=== PATIENT | female | born 1940 | race Caucasian/White ===

== ENCOUNTER 2019-06-03 09:08 | Emergency (ER) | payer MEDICARE, MEDICAID, SELFPAY ==
--- NOTE | ~2019-06-03 | CT_ITS ---
EXAMINATION: CT brain wo con DATE: 06/03/2019 09:44 INDICATION: Dizziness TECHNIQUE: Computed tomography (CT) of the head was performed without intravenous contrast. Sagittal and coronal reconstructions were performed. The mA was adjusted according to patient size. Iterative reconstruction technique was employed. The dose-length product was 605.33 mGy-cm. COMPARISON: None FINDINGS: No acute intracranial hemorrhage, acute infarction or abnormal extra axial fluid collection. Ventricl es are normal and symmetric. No mass/mass effect. Changes of bilateral intraocular lens replacement. The orbits, paranasal sinuses and mastoid air cells are normal. Intracranial calcified cerebral ather osclerosis is noted. IMPRESSION: 1. No acute intracranial process. Reviewed, dictated and finalized at location A. PACKER
--- NOTE | ~2019-06-03 | XR_ITS ---
EXAMINATION: XR chest 2V DATE: 06/03/2019 10:18 INDICATION: Shortness of breath TECHNIQUE: PA and lateral views of the chest were obtained. COMPARISON: Chest CT dated 12/10/2011 FINDINGS: Mild biapical pleural-parenchymal scarring. A few small bilateral calcified pulmonary nodules along w ith calcified bilateral hilar and mediastinal lymph nodes and a few splenic calcifications, all consi stent with old granulomatous disease. Mild opacities at the right lung base and favor atelectasis ove r pneumonia. No pulmonary edema, pleural effusion or pneumothorax. The cardiomediastinal silhouette i s normal. Multiple surgical clips at the base of the neck likely related to prior thyroidectomy. IMPRESSION: 1. Mild right basilar opacities and favor atelectasis over pneumonia. Reviewed, dictated and finalized at location A. OR DESIGNER
[2019-06-03 09:18] VITALS: BP 164/87; PULSE 96; RESP 20; TEMP 36.6; O2SAT 98
--- NOTE | 2019-06-03 09:19 | ECG_ITS ---
Measurements Intervals [place] Rate: 95 P: 48 DC: 145 QRS: 23 QRSD: 86 T: 46 QT: 331 QTc: 418 Interpretive Statements SINUS RHYTHM ATRIAL AND VENTRICULAR PREMATURE COMPLEXES BORDERLINE ECG Electronically Signed On 06-03-2019 12:40:53 AIR POLLUTION SPECIALIST by Micah King D.O.
[2019-06-03 09:35] LABS: Basophils Absolute Auto 0.1 K/mm3 (0.0-0.1); Basophils Percent Auto 0.6 % (0.2-1.2); Eosinophils Absolute Auto 0.1 K/mm3 (0-0.3); Eosinophils Percent Auto 1.1 % (0-4.4); Hematocrit 47.6 % (37.0-47.0); Hemoglobin 15.3 g/dL (12.0-15.0); Immature Granulocyte Absolute 0.03 K/mm3 (0.00-0.031); Immature Granulocyte Percent A 0.4 % (0-0.5); Lymphocytes Absolute Auto 1.81 K/mm3 (0.9-3.2); Lymphocytes Percent Auto 22.2 % (18.3-44.2); Mean Corpuscular HGB Conc 32.1 g/dl (32-36); Mean Corpuscular Hemoglobin 30.5 pg (26-34); Mean Platelet Volume 9.8 fl (7.4-10.4); Monocytes Absolute Auto 0.7 K/mm3 (0.1-0.6); Monocytes Percent Auto 9.1 % (2.6-8.5); Neutrophils Absolute Auto 5.4 K/mm3 (1.3-6.7); Neutrophils Percent Auto 66.6 % (45.5-73.1); Platelet Count Result 184 k/mm3 (150-375); Red Blood Count 5.01 M/mm3 (4.2-5.4); Red Cell Distribution Width 13.8 % (11.5-14.5); White Blood Count 8.2 K/mm3 (4.5-10.0)
--- NOTE | 2019-06-03 09:39 | ED.SOB ---
HPI - SOB/Dyspnea General Chief Complaint: Shortness of Breath/Dyspnea Stated Complaint: dizzy/sob Time Seen by Provider: 06/03/19 09:18 Source: patient and family Mode of arrival: ambulatory Limitations: no limitations History of Present Illness HPI Narrative: Patient is a 78-year-old female who presents with family per private vehicle for evaluation of dizziness that is been present since having CAT scan imaging performed by her specialist at [facility] on Tuesday patient had scan for elevated calcitonin levels with history of thyroid cancer patient notes that she was scanned from the head down into the pelvis is unsure as to the results at this time. Patient notes after the scan she developed dizziness with a sensation of the room spinning coupled with some palpitations and shortness of breath. Patient was pretreated for the contrast exam which she has been historically without issue. Patient notes that the symptoms have persisted since the exam. Nothing appears to make the symptoms better or worse. Patient is not taken anything for her symptoms. On arrival patient denying any pain Related Data Home Medications Medication Instructions Recorded Confirmed levothyroxine 125 mcg PO DAILY 06/03/19 vit C,Q-Me-vmdsk-lutein-zeaxan 1 tablet PO BID 06/03/19 [PreserVision AREDS-2] Allergies Allergy/AdvReac Type Severity Reaction Status Date / Time iohexol Allergy Intermediate Rash Verified 06/03/19 09:25 [From contrast - CT, X-RAY] Review of Systems Review of Systems: All systems reviewed & are unremarkable except as noted in HPI and below PMFSH Past Medical History Medical History Breast cancer Thyroid cancer, medullary carcinoma Surgical History Surgical History H/O mastectomy Family History Family History Mother Family history of malignant neoplasm Sibling Family history of Alzheimer's disease Grandparent Family history of thyroid disease Social History Social History Smoking status: Never smoker Second hand tobacco smoke exposure: No Alcohol intake: never Gender identity (if verbalized by the patient): Female Exam Narrative: Exam Narrative: GENERAL: Well-appearing, well-nourished, and in no acute distress. HEAD: Normocephalic, atraumatic. EYES: PERRLA and EOMI. ENT: Nares clear, no rhinorrhea or epistaxis. Mucous membranes moist. Oropharynx without tonsillar hypertrophy exudate or other lesions. Bilateral TMs pearly jackson nonbulging NECK: Supple. No adenopathy or masses. CHEST: Clear to auscultation. No respiratory distress. No wheezes rales or rhonchi HEART: Regular rate and rhythm. No murmur heard. Normal peripheral pulses. ABDOMEN: Soft, nontender, nondistended EXTREMITIES: Normal range of motion. No edema. SKIN: Warm, dry, no rash. NEURO: No focal deficits. Alert and oriented x3. Cranial nerves II through XII grossly intact. Normal speech PSYCH: Normal mood and affect. Course Course Emergency Course: Patient in the room in no distress aware of case findings treatment plan and diagnosis agreeing to follow-up as directed or to return if symptoms worsen or concerns Vital Signs Vital signs: Vital Signs Temperature 97.9 F 06/03/19 09:18 Pulse Rate 96 06/03/19 09:18 Respiratory Rate 20 06/03/19 09:18 Blood Pressure 164/87 H 06/03/19 09:18 Pulse Oximetry 98 06/03/19 09:18 Temperature 97.9 F 06/03/19 09:18 Pulse Rate 84 06/03/19 10:55 Respiratory Rate 20 06/03/19 10:39 Blood Pressure 159/77 H 06/03/19 10:55 Pulse Oximetry 98 06/03/19 10:39 MDM - SOB/Dyspnea MDM Narrative Medical decision making narrative: Patient's dizziness improved with medications, there are no focal neurological deficits on exam. Subarachno
[2019-06-03 09:49] LABS: Alanine Aminotransferase 21 U/L (4-35); Alkaline Phosphatase 99 U/L (38-126); Aspartate Amino Transferase 27 U/L (14-36); Bilirubin,Total 0.4 mg/dL (0.2-1.3); Blood Urea Nitrogen 15 mg/dL (7-17); Calcium 9.2 mg/dL (8.4-10.2); Carbon Dioxide 28 mmol/L (22-30); Chloride 102 mmol/L (98-107); Estimated Glomerular Filt Rate > 60; Glucose 160 mg/dL (65-105); Lipase 97 U/L (23-300); Potassium 4.3 mmol/L (3.4-5.0); Sodium 139 mmol/L (137-145)
[2019-06-03] MEDS: SODIUM CHLORIDE 0.9% IV 500 ML 999 ML IV CONT (09:53)
[2019-06-03 09:54] LABS: Prothrombin Time 12.5 Seconds (11.1-14.7)
[2019-06-03] MEDS: MECLIZINE HCL 25 MG TABLET PO (09:54)
[2019-06-03] MEDS: METOCLOPRAMIDE HCL INJ 10 MG/2 ML VIAL IV PUSH (09:58)
[2019-06-03 10:01] LABS: NT Pro B Type Natriuretic Pept 214 PG/ML (5-100); Troponin I < 0.012 ng/mL (0.000-0.034)
[2019-06-03 10:13] LABS: Lactic Acid Reflex 1.3 mmol/L (0.7-2.1)
[2019-06-03 10:39] VITALS: BP 131/78; PULSE 84; RESP 20; O2SAT 98
[2019-06-03 10:48] LABS: Thyroid Stimulating Hormone Reflex 0.659 uIU/mL (0.465-4.68)
[2019-06-03 10:55] VITALS: BP 151/84; BP 153/72; BP 159/77; PULSE 68; PULSE 70; PULSE 84
[2019-06-03 11:02] LABS: Add Urine Microscopic? NO; Appearance Urine Clear (Clear); Bilirubin Urine Negative (Negative); Blood Urine Negative (Negative); Color Urine Straw (Yellow); Glucose Urine UA Negative (Negative); Ketones Urine Negative (Negative); Leukocyte Esterase Ur Negative LEU/UL (Negative); Nitrate Urine Negative (Negative); Protein Urine Negative (Negative); Specific Grav Ur 1.006 (1.001-1.035); Urobilinogen Urine Negative mg/dL (<2.0)
--- NOTE | 2019-06-08 07:44 | PC.NURSE ---
LATE ENTRY This note is being entered to document information to the patient's record. The following information was omitted on [06/03/2019], by [FROY Garcia]. NS 500mL infused with a stop time of 1030.
== END 2019-06-03 12:01 | disposition home or self-care (01) ==
PROVIDERS: Emergency Medicine Emergency Medical Services; Emergency Provider Emergency Medicine; PCP Internal Medicine
DX: R42 Dizziness and giddiness (principal); Z85.3 Personal history of malignant neoplasm of breast; Z85.850 Personal history of malignant neoplasm of thyroid; Z90.10 Acquired absence of unspecified breast and nipple; I49.1 Atrial premature depolarization; I49.3 Ventricular premature depolarization
CPT/HCPCS: 36415; 70450; 71046; 80053; 81003; 83605; 83690; 83880; 84443; 84484; 85025; 85610; 85730; 93005; 96361; 96374; 96375; 99284; A9270; J2765; J3360; J7040

== ENCOUNTER 2020-01-03 08:04 | Outpatient (CLI) | payer MEDICARE, MEDICAID, SELFPAY ==
[2020-01-03 09:10] LABS: Hemoglobin A1C 5.5 % (<5.7)
[2020-01-03 09:13] LABS: Alanine Aminotransferase 31 U/L (4-35); Anion Gap 7 mmol/L (8-16); Aspartate Amino Transferase 38 U/L (14-36); Blood Urea Nitrogen 13 mg/dL (7-17); Calcium 9.4 mg/dL (8.4-10.2); Carbon Dioxide 27 mmol/L (22-30); Chloride 103 mmol/L (98-107); Cholesterol 211 mg/dL (0-200); Estimated Glomerular Filt Rate > 60; Glucose 96 mg/dL (65-105); HDL Direct 50 mg/dL; Potassium 4.2 mmol/L (3.4-5.0); Sodium 137 mmol/L (137-145); Triglycerides 111 mg/dL (<150)
[2020-01-03 09:24] LABS: LDL Cholesterol Direct 122 mg/dL
== END 2020-01-03 08:05 | disposition home or self-care (01) ==
LOC: ANHLAB 08:05
PROVIDERS: PCP Internal Medicine; Visit Provider Internal Medicine
DX: E78.00 Pure hypercholesterolemia, unspecified (principal); R73.9 Hyperglycemia, unspecified; E88.81 Metabolic syndrome and other insulin resistance
CPT/HCPCS: 36415; 80048; 80061; 83036; 84450; 84460

== ENCOUNTER 2020-06-20 06:41 | Outpatient (CLI) | payer MEDICARE, MEDICAID, SELFPAY ==
[2020-06-20 07:30] LABS: Basophils Absolute Auto 0.1 K/mm3 (0.0-0.1); Eosinophils Absolute Auto 0.1 K/mm3 (0-0.3); Eosinophils Percent Auto 2.8 % (0-4.4); Hemoglobin 14.8 g/dL (12.0-15.0); Immature Granulocyte Absolute 0.02 K/mm3 (0.00-0.031); Immature Granulocyte Percent A 0.4 % (0-0.5); Lymphocytes Absolute Auto 1.12 K/mm3 (0.9-3.2); Lymphocytes Percent Auto 22.7 % (18.3-44.2); Mean Corpuscular HGB Conc 32.2 g/dl (32-36); Mean Corpuscular Hemoglobin 30.1 pg (26-34); Mean Corpuscular Volume 93.5 fl (80-100); Mean Platelet Volume 9.5 fl (7.4-10.4); Monocytes Absolute Auto 0.4 K/mm3 (0.1-0.6); Monocytes Percent Auto 8.7 % (2.6-8.5); Neutrophils Absolute Auto 3.2 K/mm3 (1.3-6.7); Neutrophils Percent Auto 64.4 % (45.5-73.1); Platelet Count Result 134 k/mm3 (150-375); Red Blood Count 4.92 M/mm3 (4.2-5.4); Red Cell Distribution Width 13.6 % (11.5-14.5); White Blood Count 4.9 K/mm3 (4.5-10.0)
[2020-06-20 07:40] LABS: Alanine Aminotransferase 26 U/L (4-35); Albumin Level 4.1 g/dL (3.5-5.1); Alkaline Phosphatase 104 U/L (38-126); Anion Gap 4 mmol/L (8-16); Aspartate Amino Transferase 36 U/L (14-36); Bilirubin,Total 0.6 mg/dL (0.2-1.3); Blood Urea Nitrogen 14 mg/dL (7-17); Calcium 9.2 mg/dL (8.4-10.2); Carbon Dioxide 30 mmol/L (22-30); Chloride 107 mmol/L (98-107); Cholesterol 217 mg/dL (0-200); Estimated Glomerular Filt Rate > 60; Glucose 114 mg/dL (65-105); HDL Direct 55 mg/dL; Potassium 4.2 mmol/L (3.4-5.0); Sodium 141 mmol/L (137-145); Triglycerides 137 mg/dL (<150)
[2020-06-20 07:52] LABS: LDL Cholesterol Direct 117 mg/dL
[2020-06-20 08:15] LABS: Vitamin D 25 Hydroxy 41.7 ng/mL
== END 2020-06-20 06:42 | disposition home or self-care (01) ==
PROVIDERS: PCP Nurse Practitioner; Visit Provider Nurse Practitioner
DX: I10 Essential (primary) hypertension (principal); E55.9 Vitamin D deficiency, unspecified; E78.2 Mixed hyperlipidemia; E03.9 Hypothyroidism, unspecified
CPT/HCPCS: 36415; 80053; 80061; 82306; 84443; 85025; 85055

== ENCOUNTER 2020-08-03 20:57 | Emergency (ER) | payer MEDICARE, MEDICAID, SELFPAY ==
--- NOTE | ~2020-08-03 | XR_ITS ---
EXAMINATION: XR chest 2V DATE: 08/03/2020 21:48 INDICATION: Hypertension and weakness TECHNIQUE: PA and lateral views of the chest are obtained. COMPARISON: 06/03/2019 FINDINGS: The lungs are free of acute opacities. There is scarring at the lung apices. Changes of lef t mastectomy are noted. There are surgical clips in the neck and upper mediastinum. There is no pleur al effusion or pneumothorax. The cardiomediastinal silhouette is normal. There is mild thoracic spond ylosis. IMPRESSION: 1. No acute cardiopulmonary abnormality. Reviewed, dictated and finalized at location A.
[2020-08-03 21:15] VITALS: BP 191/73; PULSE 81; RESP 18; TEMP 36.4; O2SAT 99
--- NOTE | 2020-08-03 21:20 | ECG_ITS ---
Measurements Intervals [place] Rate: 81 P: 3 ID: 139 QRS: 30 QRSD: 95 T: 47 QT: 366 QTc: 426 Interpretive Statements SINUS RHYTHM WITH SINUS ARRHYTHMIA BASELINE ARTIFACT- I, III, AVL, V2 NORMAL ECG Electronically Signed On 08-03-2020 22:04:10 CDT by Micah King D.O.
[2020-08-03 21:38] LABS: Basophils Percent Auto 0.7 % (0.2-1.2); Eosinophils Absolute Auto 0.1 K/mm3 (0-0.3); Eosinophils Percent Auto 2.1 % (0-4.4); Hematocrit 44.5 % (37.0-47.0); Hemoglobin 14.5 g/dL (12.0-15.0); Immature Granulocyte Absolute 0.02 K/mm3 (0.00-0.031); Immature Granulocyte Percent A 0.3 % (0-0.5); Immature Platelet Fraction Pct 2.1 % (0.9-11.2); Lymphocytes Absolute Auto 1.21 K/mm3 (0.9-3.2); Lymphocytes Percent Auto 19.8 % (18.3-44.2); Mean Corpuscular HGB Conc 32.6 g/dl (32-36); Mean Corpuscular Hemoglobin 30.5 pg (26-34); Mean Corpuscular Volume 93.7 fl (80-100); Mean Platelet Volume 9.7 fl (7.4-10.4); Monocytes Absolute Auto 0.5 K/mm3 (0.1-0.6); Monocytes Percent Auto 8.2 % (2.6-8.5); Neutrophils Absolute Auto 4.2 K/mm3 (1.3-6.7); Neutrophils Percent Auto 68.9 % (45.5-73.1); Platelet Count Result 145 k/mm3 (150-375); Red Blood Count 4.75 M/mm3 (4.2-5.4); Red Cell Distribution Width 13.7 % (11.5-14.5); White Blood Count 6.1 K/mm3 (4.5-10.0)
[2020-08-03 21:45] LABS: Alanine Aminotransferase 22 U/L (4-35); Albumin Level 4.1 g/dL (3.5-5.1); Alkaline Phosphatase 103 U/L (38-126); Anion Gap 8 mmol/L (8-16); Aspartate Amino Transferase 35 U/L (14-36); Bilirubin,Total 0.5 mg/dL (0.2-1.3); Blood Urea Nitrogen 17 mg/dL (7-17); Calcium 9.6 mg/dL (8.4-10.2); Carbon Dioxide 27 mmol/L (22-30); Chloride 105 mmol/L (98-107); Estimated CRCL calculation 43 ml/min; Estimated Glomerular Filt Rate > 60; Glucose 219 mg/dL (65-105); Potassium 3.6 mmol/L (3.4-5.0); Sodium 140 mmol/L (137-145)
[2020-08-03 22:16] LABS: Add Urine Microscopic? NO; Appearance Urine Clear (Clear); Bilirubin Urine Negative (Negative); Blood Urine Negative (Negative); Color Urine Straw (Yellow); Glucose Urine UA Negative (Negative); Ketones Urine Negative (Negative); Leukocyte Esterase Ur Negative LEU/UL (Negative); Nitrate Urine Negative (Negative); Protein Urine Negative (Negative); Specific Grav Ur 1.005 (1.001-1.035); Urobilinogen Urine Negative mg/dL (<2.0)
[2020-08-03 22:23] VITALS: BP 151/77; PULSE 74; RESP 15; O2SAT 99
--- NOTE | 2020-08-03 22:45 | ED.DIZZY ---
HPI - Dizziness General Chief Complaint: Dizziness Stated Complaint: dizziness, bp high Time Seen by Provider: 08/03/20 22:32 History of Present Illness HPI Narrative: 79 yo female presents to the ED for dizziness. About 2 hours ago while standing for a prolonged period at [employer] she became light headed. This was associated with mild nausea. She did get some relief from sitting, but symptoms did not resolve entirely. When she got home she checked her BP and it was significantly elevated, which is unusual. She does report that she had been a bit more active today than is normal for her and had not been drinking enough water. No CP, SOB, weakness, syncope. Related Data Home Medications Medication Instructions Recorded Confirmed levothyroxine 125 mcg PO DAILY 06/03/19 06/17/20 multivitamin 1 tablet PO DAILY 06/17/20 06/17/20 vit cap PO 06/17/20 06/17/20 C,E,zinc,Dw-kdrhe-4-lutein-zeaxanthin 250 mg-2.5 mg-0.5 mg capsule Allergies Allergy/AdvReac Type Severity Reaction Status Date / Time iohexol Allergy Intermediate Rash Verified 02/14/20 11:42 [From contrast - CT, X-RAY] Review of Systems Review of Systems: All systems reviewed & are unremarkable except as noted in HPI and below Constitutional: Constitutional: Denies chills, Denies fatigue, Denies fever(s) and Denies weakness ENT: Reports system reviewed and no additional complaints, except as documented Cardiovascular: Cardiovascular: Reports as per HPI Respiratory: Respiratory: Reports as per HPI Gastrointestinal: Gastrointestinal: Reports no additional gastrointestinal complaints Genitourinary: Genitourinary: Denies hematuria and Denies dysuria Neurologic: Reports as per HPI [facility] Past Medical History Medical History (Updated 08/03/20 @ 23:36 by Lc Calvillo MD) Essential (primary) hypertension Hiatal hernia with gastroesophageal reflux disease without esophagitis History of breast cancer Hypothyroidism, unspecified Mixed hyperlipidemia Thyroid cancer, medullary carcinoma Vitamin D deficiency, unspecified Surgical History Surgical History (Updated 06/17/20 @ 09:49 by Chaya Pandey CMA) H/O mastectomy H/O: hysterectomy 11/2019 with bladder muscle repair S/P removal of thyroid nodule 11/2011 and01/2012 Family History Family History Mother Family history of malignant neoplasm Sibling Family history of Alzheimer's disease Grandparent Family history of thyroid disease Social History Social History (Updated 06/17/20 @ 09:50 by Chaya Pandey [facility]) Smoking status: Never smoker Second hand tobacco smoke exposure: No Alcohol intake: never Substance use: never Additional living arrangements comments: lives with Gender identity (if verbalized by the patient): Female Exam Const: General: healthy appearing, no acute distress and alert Orientation/consciousness: patient oriented x3 HENMT: Head: normal to inspection Neck: Neck: normal visual inspection Resp: Effort & Inspection: normal respiratory effort Auscultation: clear to auscultation bilaterally, no rales, no rhonchi and no wheezes Cardio: Jugular venous distension: no JVD Rate: regular rate Rhythm: regular rhythm GI: Inspection: non-distended GI Palp: Yes Soft to palpation and No Tenderness to palpation present (GI) Skin: General skin exam: normal color Neuro: General: patient oriented x3, moves all extremities, no focal motor deficits and CN's II-XI intact bilaterally Cranial nerves: Yes Nystagmus not present Speech: normal speech Gait exam (Neuro): Normal gait present Extrem: General: normal to inspection and no edema Psych: Appearance: well kempt Affect: normal affect Course Vital Signs Vital signs: Vital Signs Temperature 36.4 C L 08/03/20 21:15 Pulse Rate 81 08/03/20 21:15 Respiratory Rate 18 08/03/20 21:15 Blood Pressure 191/73 H 08/03/20 21:15 P
[2020-08-03 23:30] VITALS: BP 144/71; PULSE 68; RESP 19; O2SAT 99
== END 2020-08-03 23:55 | disposition home or self-care (01) ==
PROVIDERS: Emergency Provider Emergency Medicine; PCP Nurse Practitioner
DX: R55 Syncope and collapse (principal); I10 Essential (primary) hypertension; Z85.3 Personal history of malignant neoplasm of breast; E03.9 Hypothyroidism, unspecified; E78.2 Mixed hyperlipidemia; E55.9 Vitamin D deficiency, unspecified; Z85.850 Personal history of malignant neoplasm of thyroid; Z90.10 Acquired absence of unspecified breast and nipple
CPT/HCPCS: 36415; 71046; 80053; 81003; 85025; 85055; 93005; 99283

== ENCOUNTER 2020-08-07 13:20 | Outpatient (CLI) | payer MEDICARE, MEDICAID, SELFPAY ==
[2020-08-07 14:38] LABS: Add Urine Microscopic? YES; Appearance Urine Cloudy (Clear); Bacteria Urine Trace /hpf; Bilirubin Urine Negative (Negative); Blood Urine 2+ (Negative); Color Urine Yellow (Yellow); Glucose Urine UA Negative (Negative); Ketones Urine Negative (Negative); Leukocyte Esterase Ur 2+ LEU/UL (Negative); Nitrate Urine Negative (Negative); Protein Urine 1+ mg/dL (Negative); RBC Urine 21-50 /hpf (0-2); Specific Grav Ur 1.013 (1.001-1.035); Squamous Epithelial Cell Urine Rare /hpf (Few); Urobilinogen Urine Negative mg/dL (<2.0); WBC Urine >75 /hpf
== END 2020-08-07 13:21 | disposition home or self-care (01) ==
LOC: ANHLAB 13:25
PROVIDERS: PCP Nurse Practitioner; Visit Provider Nurse Practitioner Family
DX: N39.0 Urinary tract infection, site not specified (principal)
CPT/HCPCS: 81001; 87086; 87088

== ENCOUNTER 2021-01-20 10:18 | Outpatient (CLI) | payer MEDICARE, MEDICAID, SELFPAY ==
[2021-01-20 11:21] LABS: Alanine Aminotransferase 25 U/L (4-35); Albumin Level 4.4 g/dL (3.5-5.1); Alkaline Phosphatase 100 U/L (38-126); Anion Gap 7 mmol/L (8-16); Aspartate Amino Transferase 35 U/L (14-36); Bilirubin,Total 0.3 mg/dL (0.2-1.3); Blood Urea Nitrogen 19 mg/dL (7-17); Calcium 9.6 mg/dL (8.4-10.2); Carbon Dioxide 27 mmol/L (22-30); Chloride 106 mmol/L (98-107); Estimated Glomerular Filt Rate > 60; Glucose 116 mg/dL (65-110); Potassium 4.2 mmol/L (3.4-5.0); Sodium 140 mmol/L (137-145)
[2021-01-20 18:53] LABS: Hemoglobin A1C 5.7 % (<5.7)
== END 2021-01-20 10:19 | disposition home or self-care (01) ==
LOC: ANHLAB 10:20
PROVIDERS: PCP Family Medicine; Visit Provider Family Medicine
DX: R73.9 Hyperglycemia, unspecified (principal); E03.9 Hypothyroidism, unspecified; I10 Essential (primary) hypertension
CPT/HCPCS: 36415; 80053; 83036; 84443

== ENCOUNTER 2021-02-21 11:45 | Emergency (ER) | payer MEDICARE, MEDICAID, SELFPAY ==
[2021-02-21 11:55] VITALS: BP 174/78; PULSE 88; RESP 16; TEMP 36.8; O2SAT 99
--- NOTE | 2021-02-21 12:54 | ED.FEMALEGU ---
HPI - Female Genitourinary General Chief complaint: Urogenital-Female Stated complaint: UTI Time Seen by Provider: 02/21/21 12:54 Source: patient Mode of arrival: ambulatory Limitations: no limitations History of Present Illness HPI Narrative: Renetta Mathis is an 80-year-old female with a PMH of high blood pressure and hypothyroid, HLD, breast cancer who comes to [facility] with complaints of urinary frequency and suprapubic pain has been going on for about 3 days and is getting worse. She also has some respiratory symptoms and is concerned about exposure to Covid Patient has had Covid vaccine Related Data Home Medications Medication Instructions Recorded Confirmed levothyroxine 125 mcg PO DAILY 06/03/19 02/21/21 multivitamin 1 tablet PO DAILY 06/17/20 02/21/21 vit cap PO 06/17/20 01/20/21 C,E,zinc,Fw-yephi-6-lutein-zeaxanthin 250 mg-2.5 mg-0.5 mg capsule Allergies Allergy/AdvReac Type Severity Reaction Status Date / Time iohexol Allergy Intermediate Rash Verified 02/21/21 12:47 [From contrast - CT, X-RAY] Review of Systems Review of Systems: CONSTITUTIONAL: Denies fever, chills, sweats. EYES: Denies visual changes, redness, discharge. ENT: Denies rhinorrhea, congestion, sore throat, otalgia. CARDIOVASCULAR: Denies chest pain, palpitations, edema. RESPIRATORY: Denies dyspnea, wheezing, cough GASTROINTESTINAL: Denies abdominal pain, nausea, vomiting, diarrhea. GENITOURINARY has dysuria, hematuria, abnormal discharge SKIN: Denies rash or itching. NEUROLOGIC: Denies numbness, or focal weakness. PSYCHIATRIC: Denies anxiety or depression. [facility] Past Medical History Medical History Essential (primary) hypertension Hiatal hernia with gastroesophageal reflux disease without esophagitis History of breast cancer Hypothyroidism, unspecified Mixed hyperlipidemia Thyroid cancer, medullary carcinoma Vitamin D deficiency, unspecified Surgical History Surgical History H/O: hysterectomy 11/2019 with bladder muscle repair History of total mastectomy of left breast 05/2012 Status post thyroidectomy 11/2011 - secondary to medullary thyroid cancer Family History Family History Mother Family history of malignant neoplasm Sibling Family history of Alzheimer's disease Grandparent Family history of thyroid disease Social History Social History Second hand tobacco smoke exposure: No Alcohol intake: never Substance use: never Additional living arrangements comments: lives with Gender identity (if verbalized by the patient): Female Comments At time of signature, I agree with nursing past medical, surgical, social and family history. There is no relevant family history pertinent to the presenting complaint. Exam Narrative: GENERAL: This is a well-nourished, well-developed patient, fragile appearing, in mild distress. HEAD: normocephalic, atraumatic. EYES: Sclera clear/white. Vision is grossly intact. EARS: External ears normal, . Hearing grossly intact. NOSE: External nose normal without nasal discharge, nares without redness, no rhinorrhea. THROAT: Mucous membranes moist, NECK: Neck supple, non-tender CARDIOVASCULAR: Regular rate and rhythm without murmurs, gallops, or rubs. RESPIRATORY: Clear to auscultation. Breath sounds equal bilaterally. No wheezes, rales, or rhonchi. GASTROINTESTINAL: Abdomen soft, mild suprapubic tender, SKIN: warm, intact with no suspicious lesions or rash, good texture and turgor. NEURO: awake, alert, and oriented to person, place and time. There were no obvious focal neurologic abnormalities. Steady gait EXTREMITIES: Normal range of motion. BACK: Nontender without deformity Course Course Emergency Course: Patient comes to [facility]
== END 2021-02-21 13:15 | disposition home or self-care (01) ==
PROVIDERS: Emergency Provider Nurse Practitioner
DX: N30.01 Acute cystitis with hematuria (principal); Z20.822 Contact with and (suspected) exposure to COVID-19; I10 Essential (primary) hypertension; K21.9 Gastro-esophageal reflux disease without esophagitis; E55.9 Vitamin D deficiency, unspecified; Z85.850 Personal history of malignant neoplasm of thyroid; Z85.3 Personal history of malignant neoplasm of breast; E89.0 Postprocedural hypothyroidism; Z90.12 Acquired absence of left breast and nipple
CPT/HCPCS: 81003; 87077; 87086; 87186; 87426; 99213; C9803; G0463

== ENCOUNTER 2021-06-10 13:09 | Outpatient (CLI) | payer MEDICARE, MEDICAID, SELFPAY ==
--- NOTE | ~2021-06-10 | US_ITS ---
EXAMINATION: US carotid duplex BI DATE: 06/10/2021 13:37 INDICATION: Dizziness and giddiness TECHNIQUE: Grayscale, color Doppler, and pulsed Doppler images of the cervical carotid arteries were obtained. The degree of vessel stenosis is placed in one of the following categories: normal, <50%, 5 0-69%, >=70% but less than near-occlusion, near-occlusion, or total occlusion. Note that percent sten osis relative to normal distal artery lumen diameter is indirectly measured from velocity measurement s as described by Lc, et al. Radiology 2003; 229:340-346. Notes: Normal: Peak systolic velocity <125 centimeters/sec and no plaque <50%. Peak systolic velocity <125 ( EDV <40; ICA/CCA PSV ratio <2.0; used these factors only a tandem lesions or low cardiac output or co ntralateral disease) 50-69 %: PSV 125-230 (EDV 40-100; ratio 2-4) >= 70% but less than near occlusion: PSV greater than 230 (EDV > 100; ratio> 4.0) Near Occlusion: PSV that is variable; markedly narrowed lumen Occlusion: Absent flow on color/spectral Doppler and no lumen on jackson scale. COMPARISON: None. FINDINGS: RIGHT: The right common carotid artery (CCA) peak systolic velocity (PSV) is 99 cm/s. The right internal car otid artery (ICA) PSV is 117 cm/s. The right ICA end-diastolic velocity (EDV) is 28 cm/s. The right I CA/CCA PSV ratio is 1.2. The external carotid artery (ECA) PSV is 125 cm/s. There is antegrade flow i n the right vertebral artery. LEFT: The left CCA PSV is 112 cm/s. The left ICA PSV is 91 cm/s. The left ICA EDV is 24 cm/s. The left ICA/ CCA PSV ratio is 0.8. The ECA PSV is 112 cm/s. There is antegrade flow in the left vertebral artery. IMPRESSION: 1. Less than 50% stenosis in the right internal carotid artery by sonographic criteria. 2. Less than 50% stenosis in the left internal carotid artery by sonographic criteria. Reviewed, dictated and finalized at location B. MATCHER IMPRESSION: 1. Less than 50% stenosis in the right internal carotid artery by sonographic fernanda blas. 2. Less than 50% stenosis in the left internal carotid artery by sonographic brooke french.
== END 2021-06-10 13:10 | disposition home or self-care (01) ==
LOC: ANHIMG 13:12
PROVIDERS: PCP Family Medicine; Visit Provider Nurse Practitioner
DX: R42 Dizziness and giddiness (principal); I65.23 Occlusion and stenosis of bilateral carotid arteries
CPT/HCPCS: 93880

== ENCOUNTER 2021-06-12 13:40 | Outpatient (CLI) | payer MEDICARE, MEDICAID, SELFPAY ==
--- NOTE | 2021-06-12 13:54 | ECHO_ITS ---
Patient Info Name: Renetta Mathis Age: 80 years : 1940 Gender: Female Ht: 64 in Wt: 125 lbs BSA: 1.60 m2 HR: 80 bpm BP: 157 / 88 mmHg Technical Quality: Good Exam Date: 06/12/2021 2:18 PM Exam Location: [facility] Patient Status: Outpatient Admit Date: 06/12/2021 Staff Ordering Physician: Ashlie De Los Santos NP Texturing Machine Fixer: Bryson Best RDCS, RT Attending Provider: Ashlie De Los Santos NP Referring Physician: Filiberto FRASER; Exam Type: CA echo doppler color flow Study Info Indications R42 - Dizziness and giddiness Complete two-dimensional, color flow and Doppler transthoracic echocardiogram is performed. Strain analysis performed. Summary 1. Complete two-dimensional, color flow and Doppler transthoracic echocardiogram is performed. 2. Left ventricular chamber dimension is normal. 3. Left ventricular systolic function is normal, estimated at 60-65%. 4. The left ventricular diastolic function is normal. 5. E/e' 6 is not elevated. 6. Global longitudinal strain is normal at -20.7%. 7. There is trace tricuspid valve regurgitation. Left Ventricle E/e' 6 is not elevated. Global longitudinal strain is normal at -20.7%. Left ventricular chamber dimension is normal. Left ventricular systolic function is normal, estimated at 60-65%. The left ventricular diastolic function is normal. Right Ventricle Right ventricular systolic function is normal and with normal TAPSE 2.1 cm. Right ventricular chamber dimension is normal. Left Atria Left atrial chamber dimension is normal. Right Atria Right atrial chamber dimension is normal. Aortic Valve The aortic valve is trileaflet. There is no aortic valve stenosis. There is no aortic valve regurgitation. Pulmonic Valve There is no pulmonic regurgitation. Mitral Valve There is no mitral valve stenosis. There is no mitral valve regurgitation. Tricuspid Valve There is trace tricuspid valve regurgitation. RVSP is not calculated due to an inadequate TR jet. Pericardium/Pleural There is no pericardial effusion. Inferior Vena Cava Normal inferior vena cava with >50% collapse upon inspiration consistent with normal right atrial pressure, 5 mmHg. Aorta The aortic root size at the sinus of Valsalva is normal. Left Ventricular Outflow Tract Name Value Normal LVOT 2D LVOT Diameter 1.9 cm LVOT Doppler LVOT Peak Gradient 3 mmHg LVOT Mean Gradient 2 mmHg LVOT VTI 21 cm LVOT VTI/AV VTI Ratio 1.0 LVOT Stroke Volume 57 ml LVOT CO 4.6 l/min LVOT CI 2.9 l/min/m2 Mitral Valve Name Value Normal MV Doppler MV Peak Gradient 1 mmHg MV Mean Gradient
== END 2021-06-12 13:41 | disposition home or self-care (01) ==
LOC: ANHCARD 13:42
PROVIDERS: PCP Family Medicine; Visit Provider Nurse Practitioner
DX: R42 Dizziness and giddiness (principal); I10 Essential (primary) hypertension
CPT/HCPCS: 93306

== ENCOUNTER 2021-06-29 08:10 | Outpatient (CLI) | payer MEDICARE, MEDICAID, SELFPAY ==
[2021-06-29 09:39] LABS: Basophils Percent Auto 0.5 % (0.2-1.2); Eosinophils Absolute Auto 0.1 K/mm3 (0-0.3); Eosinophils Percent Auto 1.8 % (0-4.4); Hematocrit 44.5 % (37.0-47.0); Immature Granulocyte Absolute 0.01 K/mm3 (0.00-0.031); Immature Granulocyte Percent A 0.2 % (0-0.5); Immature Platelet Fraction Pct 3.9 % (0.9-11.2); Lymphocytes Absolute Auto 1.12 K/mm3 (0.9-3.2); Lymphocytes Percent Auto 20.3 % (18.3-44.2); Mean Corpuscular HGB Conc 31.5 g/dl (32-36); Mean Corpuscular Hemoglobin 30.6 pg (26-34); Mean Corpuscular Volume 97.2 fl (80-100); Mean Platelet Volume 10.1 fl (7.4-10.4); Monocytes Absolute Auto 0.5 K/mm3 (0.1-0.6); Monocytes Percent Auto 9.8 % (2.6-8.5); Neutrophils Absolute Auto 3.7 K/mm3 (1.3-6.7); Neutrophils Percent Auto 67.4 % (45.5-73.1); Platelet Count Result 145 k/mm3 (150-375); Red Blood Count 4.58 M/mm3 (4.2-5.4); Red Cell Distribution Width 13.2 % (11.5-14.5); White Blood Count 5.5 K/mm3 (4.5-10.0)
[2021-06-29 09:50] LABS: Alanine Aminotransferase 24 U/L (4-35); Albumin Level 3.9 g/dL (3.5-5.1); Alkaline Phosphatase 111 U/L (38-126); Anion Gap 4 mmol/L (8-16); Aspartate Amino Transferase 35 U/L (14-36); Bilirubin,Total 0.4 mg/dL (0.2-1.3); Blood Urea Nitrogen 16 mg/dL (7-17); Calcium 8.8 mg/dL (8.4-10.2); Carbon Dioxide 29 mmol/L (22-30); Chloride 107 mmol/L (98-107); Cholesterol 212 mg/dL (0-200); Estimated Glomerular Filt Rate > 60; Glucose 105 mg/dL (65-110); HDL Direct 50 mg/dL; Potassium 4.2 mmol/L (3.4-5.0); Sodium 140 mmol/L (137-145); Triglycerides 170 mg/dL (<150)
[2021-06-29 09:54] LABS: Hemoglobin A1C 5.5 % (<5.7)
[2021-06-29 10:01] LABS: LDL Cholesterol Direct 112 mg/dL
[2021-06-29 10:14] LABS: Vitamin D 25 Hydroxy 56.7 ng/mL
[2021-06-29 10:28] LABS: Thyroid Stimulating Hormone Reflex 0.021 uIU/mL (0.465-4.68)
[2021-06-29 11:14] LABS: Free T4 Free Thyroxine Reflex 1.89 ng/dL (0.78-2.19)
[2021-06-29 13:05] LABS: Total Triiodothyronine (T3) 1.92 NG/ML (0.97-1.69)
== END 2021-06-29 08:11 | disposition home or self-care (01) ==
LOC: ANHLAB 08:15
PROVIDERS: PCP Family Medicine; Visit Provider Family Medicine
DX: E03.9 Hypothyroidism, unspecified (principal); E78.5 Hyperlipidemia, unspecified; R73.9 Hyperglycemia, unspecified; E55.9 Vitamin D deficiency, unspecified; Z85.850 Personal history of malignant neoplasm of thyroid; I10 Essential (primary) hypertension; Z00.00 Encounter for general adult medical examination without abnormal findings
CPT/HCPCS: 36415; 80053; 80061; 82306; 83036; 84439; 84443; 84480; 85025; 85055

== ENCOUNTER 2021-07-09 14:17 | Emergency (ER) | payer MEDICARE, MEDICAID, SELFPAY ==
[2021-07-09 14:30] VITALS: BP 167/85; PULSE 105; RESP 20; TEMP 36.6; O2SAT 99
[2021-07-09 14:38] VITALS: BP 167/85; PULSE 105; RESP 20; TEMP 36.6; O2SAT 99
--- NOTE | 2021-07-09 14:44 | ED.FEMALEGU ---
HPI - Female Genitourinary General Chief complaint: Urogenital-Female Stated complaint: UTI Time Seen by Provider: 07/09/21 14:35 Source: patient and RN notes reviewed Mode of arrival: ambulatory Limitations: no limitations History of Present Illness HPI Narrative: Patient presents today complaining of urinary frequency, dysuria, voiding small amounts since yesterday. Denies abdominal pain, back pain, hematuria, urinary frequency. She has tried no medication for symptoms prior to arrival. Patient was treated for UTI in February 2021 with Keflex for Klebsiella. MD elicited complaint: UTI Related Data Home Medications Medication Instructions Recorded Confirmed levothyroxine 125 mcg PO DAILY 06/03/19 07/09/21 multivitamin 1 tablet PO DAILY 06/17/20 07/09/21 ascorbic acid (vitamin C) 500 mg See Rx Instructions PO DAILY cap 06/22/21 07/09/21 capsule cholecalciferol (vitamin D3) 125 125 mcg PO DAILY 06/22/21 07/09/21 mcg (5,000 unit) capsule azelastine 137 mcg INTRANASAL DIRECTED 07/09/21 07/09/21 Allergies Allergy/AdvReac Type Severity Reaction Status Date / Time iohexol Allergy Intermediate Rash Verified 07/09/21 14:30 [From contrast - CT, X-RAY] Review of Systems Review of Systems: CONSTITUTIONAL: Denies body aches, fever, chills, or sweats. EYES: Denies visual changes, redness, or discharge. ENT: Denies rhinorrhea, congestion, sore throat, or otalgia. CARDIOVASCULAR: Denies chest pain, palpitations, or edema. RESPIRATORY: Denies cough or dyspnea. GASTROINTESTINAL: Denies abdominal pain, nausea, vomiting, or diarrhea. GENITOURINARY: Denies hematuria. + Dysuria, frequency, voiding small amounts SKIN: Denies rash, itching, or wounds. MUSCULOSKELETAL: Denies back pain, joint pain, or myalgia. NEUROLOGIC: Denies headache, numbness, tingling, or weakness. PSYCH: Denies depression or anxiety. [facility] Past Medical History Medical History Essential (primary) hypertension Hiatal hernia with gastroesophageal reflux disease without esophagitis History of breast cancer Hypothyroidism, unspecified Mixed hyperlipidemia Thyroid cancer, medullary carcinoma Vitamin D deficiency, unspecified Surgical History Surgical History H/O: hysterectomy 11/2019 with bladder muscle repair History of total mastectomy of left breast 05/2012 Status post thyroidectomy 11/2011 - secondary to medullary thyroid cancer Family History Family History Mother Family history of malignant neoplasm Sibling Family history of Alzheimer's disease Grandparent Family history of thyroid disease Social History Social History Second hand tobacco smoke exposure: No Alcohol intake: never Substance use: never Additional living arrangements comments: lives with Gender identity (if verbalized by the patient): Female Comments At time of signature, I have reviewed and agree with nursing past medical, surgical, social and family history unless otherwise noted. Please see nursing chart for further information. There is no relevant family history pertinent to the presenting complaint Exam Narrative: GENERAL: Well-appearing, well-nourished, and in no acute distress. HEAD: Normocephalic, atraumatic. EYES: EOMI. No redness or drainage. Conjunctivae normal. ENT: Mucous membranes pink and moist. NECK: Normal AROM. CHEST: No respiratory distress. Clear to auscultation. HEART: Regular rate and rhythm. No murmur appreciated. Normal peripheral pulses. ABDOMEN: Soft, nontender, nondistended, normal active bowel sounds. EXTREMITIES: Normal range of motion. No edema. SKIN: Warm, dry, no rash. Capillary refill normal. Normal skin turgor. NEURO: No focal deficits. Alert and oriented x3.
== END 2021-07-09 15:11 | disposition home or self-care (01) ==
PROVIDERS: Emergency Provider Nurse Practitioner; PCP Family Medicine
DX: N30.00 Acute cystitis without hematuria (principal); I10 Essential (primary) hypertension; K21.9 Gastro-esophageal reflux disease without esophagitis; E03.9 Hypothyroidism, unspecified; E78.2 Mixed hyperlipidemia; E55.9 Vitamin D deficiency, unspecified; Z85.850 Personal history of malignant neoplasm of thyroid; Z85.3 Personal history of malignant neoplasm of breast; Z90.12 Acquired absence of left breast and nipple; Z90.89 Acquired absence of other organs
CPT/HCPCS: 81003; 87077; 87086; 87186; 99213; G0463

== ENCOUNTER 2021-07-31 07:33 | Outpatient (CLI) | payer MEDICARE, MEDICAID, SELFPAY ==
--- NOTE | ~2021-07-31 | CT_ITS ---
EXAMINATION: CT soft tissue neck w con DATE: 07/31/2021 08:07 INDICATION: Lump near left ear. TECHNIQUE: Computed tomography (CT) of the neck was performed with 75 mL Omnipaque-350 intravenous co ntrast. Automated exposure control and iterative reconstruction technique were employed. The dose-tomy gth product was 328.25 mGy-cm. COMPARISON: None FINDINGS: There is mild scarring at the lung apices. A calcified left lung nodule and calcified hilar and mediastinal lymph nodes are consistent with old granulomatous disease. There are likely changes of ocular lens replacement surgeries. There are changes of thyroidectomy. There is a 10 x 8 mm hypere nhancing mass in the posterior right thyroidectomy bed. There is a skin marker overlying the left par otid gland, which is normal. There are no pathologically enlarged lymph nodes. There is plaque in the proximal internal carotid arteries with less than 50% stenosis relative to normal distal artery lume n diameters. There is severe cervical spondylosis. 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 IMPRESSION: 1. No soft tissue abnormality in the patient's area of concern anterior to left ear. 2. 10 x 8 mm hyperenhancing mass in the posterior right thyroidectomy bed, which may be residual thyr oid tissue. Reviewed, dictated and finalized at location A. IMPRESSION: 1. No soft tissue abnormality in the patient's area of concern anterior to left ear. 2. 10 x 8 mm hyperenhancing mass in the posterior right thyroidectomy bed, whic h may be residual thyroid tissue.
[2021-07-31 08:01] LABS: Estimated Glomerular Filt Rate > 60
== END 2021-07-31 07:34 | disposition home or self-care (01) ==
LOC: ANHIMG 07:36
PROVIDERS: PCP Family Medicine; Visit Provider Family Medicine
DX: R22.1 Localized swelling, mass and lump, neck (principal); M47.812 Spondylosis without myelopathy or radiculopathy, cervical region; M26.642 Arthritis of left temporomandibular joint; Z90.89 Acquired absence of other organs
CPT/HCPCS: 70491; Q9967

== ENCOUNTER 2022-02-09 07:53 | Outpatient (CLI) | payer MEDICARE, MEDICAID, SELFPAY ==
[2022-02-09 08:45] LABS: Basophils Percent Auto 0.6 % (0.2-1.2); Eosinophils Absolute Auto 0.1 K/mm3 (0-0.3); Hematocrit 43.1 % (37.0-47.0); Immature Granulocyte Absolute 0.01 K/mm3 (0.00-0.031); Immature Granulocyte Percent A 0.2 % (0-0.5); Immature Platelet Fraction Pct 3.5 % (0.9-11.2); Lymphocytes Absolute Auto 0.97 K/mm3 (0.9-3.2); Lymphocytes Percent Auto 20.7 % (18.3-44.2); Mean Corpuscular HGB Conc 32.5 g/dl (32-36); Mean Corpuscular Hemoglobin 30.4 pg (26-34); Mean Corpuscular Volume 93.7 fl (80-100); Mean Platelet Volume 9.7 fl (7.4-10.4); Monocytes Absolute Auto 0.4 K/mm3 (0.1-0.6); Monocytes Percent Auto 9.2 % (2.6-8.5); Neutrophils Absolute Auto 3.1 K/mm3 (1.3-6.7); Neutrophils Percent Auto 66.3 % (45.5-73.1); Platelet Count Result 130 k/mm3 (150-375); Red Cell Distribution Width 13.7 % (11.5-14.5); White Blood Count 4.7 K/mm3 (4.5-10.0)
[2022-02-09 08:54] LABS: Alanine Aminotransferase 30 U/L (6-35); Albumin Level 3.9 g/dL (3.5-5.1); Alkaline Phosphatase 128 U/L (38-126); Anion Gap 8 mmol/L (8-16); Aspartate Amino Transferase 38 U/L (14-36); Bilirubin,Total 0.6 mg/dL (0.2-1.3); Blood Urea Nitrogen 15 mg/dL (7-17); Calcium 8.9 mg/dL (8.4-10.2); Carbon Dioxide 26 mmol/L (22-30); Chloride 104 mmol/L (98-107); Cholesterol 195 mg/dL (0-200); Estimated Glomerular Filt Rate > 60; Glucose 128 mg/dL (65-110); HDL Direct 55 mg/dL; Sodium 138 mmol/L (137-145); Triglycerides 226 mg/dL (<150)
[2022-02-09 09:05] LABS: LDL Cholesterol Direct 90 mg/dL
[2022-02-09 10:03] LABS: Thyroid Stimulating Hormone Reflex 0.042 uIU/mL (0.465-4.68)
[2022-02-09 10:41] LABS: Free T4 Free Thyroxine Reflex 2.37 ng/dL (0.78-2.19)
== END 2022-02-09 07:54 | disposition home or self-care (01) ==
PROVIDERS: PCP Family Medicine; Visit Provider Nurse Practitioner
DX: E03.9 Hypothyroidism, unspecified (principal); E78.5 Hyperlipidemia, unspecified; I10 Essential (primary) hypertension
CPT/HCPCS: 36415; 80053; 80061; 83036; 84439; 84443; 85025; 85055

== ENCOUNTER 2022-02-23 15:04 | Outpatient (CLI) | payer MEDICARE, MEDICAID, SELFPAY ==
[2022-02-23 18:25] LABS: Basophils Absolute Auto 0.1 K/mm3 (0.0-0.1); Basophils Percent Auto 0.9 % (0.2-1.2); Eosinophils Absolute Auto 0.1 K/mm3 (0-0.3); Eosinophils Percent Auto 2.4 % (0-4.4); Hemoglobin 14.5 g/dL (12.0-15.0); Immature Granulocyte Absolute 0.01 K/mm3 (0.00-0.031); Immature Granulocyte Percent A 0.2 % (0-0.5); Lymphocytes Absolute Auto 1.46 K/mm3 (0.9-3.2); Mean Corpuscular HGB Conc 31.5 g/dl (32-36); Mean Corpuscular Hemoglobin 30.7 pg (26-34); Mean Corpuscular Volume 97.3 fl (80-100); Mean Platelet Volume 10.3 fl (7.4-10.4); Monocytes Absolute Auto 0.6 K/mm3 (0.1-0.6); Monocytes Percent Auto 10.1 % (2.6-8.5); Neutrophils Absolute Auto 3.6 K/mm3 (1.3-6.7); Neutrophils Percent Auto 61.4 % (45.5-73.1); Platelet Count Result 144 k/mm3 (150-375); Red Blood Count 4.73 M/mm3 (4.2-5.4); Red Cell Distribution Width 13.2 % (11.5-14.5); White Blood Count 5.9 K/mm3 (4.5-10.0)
== END 2022-02-23 15:05 | disposition home or self-care (01) ==
LOC: ANHGOSHLAB 15:08
PROVIDERS: PCP Family Medicine; Visit Provider Nurse Practitioner
DX: R23.3 Spontaneous ecchymoses (principal)
CPT/HCPCS: 36415; 85025; 85055

== ENCOUNTER 2022-04-05 07:21 | Outpatient (CLI) | payer MEDICARE, MEDICAID, SELFPAY ==
--- NOTE | ~2022-04-05 | US_ITS ---
Abdominal Sonogram: Real-time sonographic imaging of the abdomen was performed. Clinical History: Thrombocytopenia, abnormal LFTs Findings: The liver appears normal with no evidence of mass lesion or bile duct dilatation. Main por rené vein demonstrates normal direction of flow. The spleen is normal in size, with calcified granulom as. The gallbladder is well distended, and contains multiple echogenic, shadowing gallstones. No def inite gallbladder wall thickening. The common bile duct measures 5 mm. The visualized pancreas, aort a, and IVC are unremarkable. The right kidney measures 9.6 cm in length and the left kidney measures 10.0 cm. There is no hydronephrosis or renal calculus. Impression: Cholelithiasis. Calcified splenic granulomas. Reviewed, dictated and finalized at location [] L AND CASTER REPAIRER Impression: Cholelithiasis. Calcified splenic granulomas.
== END 2022-04-05 07:22 | disposition home or self-care (01) ==
PROVIDERS: PCP Family Medicine; Visit Provider Internal Medicine Medical Oncology
DX: D69.6 Thrombocytopenia, unspecified (principal); R74.8 Abnormal levels of other serum enzymes; K80.20 Calculus of gallbladder without cholecystitis without obstruction
CPT/HCPCS: 76700

== ENCOUNTER 2022-06-28 06:55 | Outpatient (CLI) | payer MEDICARE, MEDICAID, SELFPAY ==
[2022-06-28 07:29] LABS: Basophils Absolute Auto 0.1 K/mm3 (0.0-0.1); Basophils Percent Auto 1.4 % (0.2-1.2); Eosinophils Absolute Auto 0.2 K/mm3 (0-0.3); Eosinophils Percent Auto 4.2 % (0-4.4); Hematocrit 41.6 % (37.0-47.0); Hemoglobin 13.3 g/dL (12.0-15.0); Immature Granulocyte Absolute 0.01 K/mm3 (0.00-0.031); Immature Granulocyte Percent A 0.2 % (0-0.5); Lymphocytes Absolute Auto 1.15 K/mm3 (0.9-3.2); Lymphocytes Percent Auto 22.8 % (18.3-44.2); Mean Corpuscular Hemoglobin 31.1 pg (26-34); Mean Corpuscular Volume 97.2 fl (80-100); Mean Platelet Volume 9.8 fl (7.4-10.4); Monocytes Absolute Auto 0.5 K/mm3 (0.1-0.6); Monocytes Percent Auto 10.1 % (2.6-8.5); Neutrophils Absolute Auto 3.1 K/mm3 (1.3-6.7); Neutrophils Percent Auto 61.3 % (45.5-73.1); Platelet Count Result 155 k/mm3 (150-375); Red Blood Count 4.28 M/mm3 (4.2-5.4); Red Cell Distribution Width 13.6 % (11.5-14.5)
[2022-06-28 08:04] LABS: Alanine Aminotransferase 33 U/L (6-35); Alkaline Phosphatase 171 U/L (38-126); Anion Gap 5 mmol/L (8-16); Aspartate Amino Transferase 58 U/L (14-36); Bilirubin,Total 0.5 mg/dL (0.2-1.3); Blood Urea Nitrogen 14 mg/dL (7-17); Calcium 8.9 mg/dL (8.4-10.2); Carbon Dioxide 27 mmol/L (22-30); Chloride 106 mmol/L (98-107); Cholesterol 225 mg/dL (0-200); Estimated Glomerular Filt Rate > 60; Glucose 97 mg/dL (65-110); HDL Direct 62 mg/dL; Sodium 138 mmol/L (137-145); Triglycerides 123 mg/dL (<150)
[2022-06-28 08:16] LABS: LDL Cholesterol Direct 112 mg/dL
[2022-06-28 08:25] LABS: Hemoglobin A1C 5.2 % (<5.7)
== END 2022-06-28 06:56 | disposition home or self-care (01) ==
LOC: ANHLAB 06:57
PROVIDERS: PCP Family Medicine; Visit Provider Family Medicine
DX: E03.9 Hypothyroidism, unspecified (principal); I10 Essential (primary) hypertension; R73.03 Prediabetes; E78.5 Hyperlipidemia, unspecified; E53.8 Deficiency of other specified B group vitamins; E55.9 Vitamin D deficiency, unspecified
CPT/HCPCS: 36415; 80053; 80061; 82306; 82607; 83036; 85025

== ENCOUNTER 2022-12-30 09:40 | Outpatient (CLI) | payer MEDICARE, MEDICAID, SELFPAY ==
[2022-12-30 11:51] LABS: Alanine Aminotransferase 26 U/L (6-35); Alkaline Phosphatase 118 U/L (38-126); Anion Gap 7 mmol/L (8-16); Aspartate Amino Transferase 51 U/L (14-36); Bilirubin,Total 0.6 mg/dL (0.2-1.3); Blood Urea Nitrogen 14 mg/dL (7-17); Calcium 9.1 mg/dL (8.4-10.2); Carbon Dioxide 29 mmol/L (22-30); Chloride 104 mmol/L (98-107); Estimated Glomerular Filt Rate > 60; Glucose 124 mg/dL (65-110); Potassium 4.2 mmol/L (3.4-5.0); Sodium 140 mmol/L (137-145)
[2022-12-30 12:36] LABS: Hemoglobin A1C 5.7 % (<5.7)
== END 2022-12-30 09:41 | disposition home or self-care (01) ==
LOC: ANHGOSHLAB 09:41
PROVIDERS: PCP Family Medicine; Visit Provider Family Medicine
DX: E03.9 Hypothyroidism, unspecified (principal); I10 Essential (primary) hypertension; R73.03 Prediabetes
CPT/HCPCS: 36415; 80053; 83036; 84443

== ENCOUNTER 2023-03-03 16:23 | Emergency (ER) | payer MEDICARE, MEDICAID, SELFPAY ==
--- NOTE | ~2023-03-03 | XR_ITS ---
EXAMINATION: XR chest 2V DATE: 03/03/2023 19:25 INDICATION: Cough and possible aspiration TECHNIQUE: frontal and lateral views of the chest were obtained. COMPARISON: Chest radiograph dated 08/03/2020 FINDINGS: Mild elevation the left hemidiaphragm and eventration with colonic interposition along the right richie diaphragm. Mild streaky right basilar atelectasis. Large calcified splenic nodules and calcified bila teral hilar and mediastinal lymph nodes consistent with old granulomatous disease. No pulmonary edema , pleural effusion or pneumothorax. Heart size is normal. Multiple surgical clips at the base of the neck consistent with prior thyroidectomy. Prominent costochondral calcifications calcifications. IMPRESSION: 1. Mild streaky right basilar atelectasis. No other acute cardiopulmonary disease. Reviewed, dictated and finalized at location A. UMER LOAN OFFICER IMPRESSION: 1. Mild streaky right basilar atelectasis. No other acute cardiopulmonary disea se.
[2023-03-03 16:27] VITALS: BP 165/78; PULSE 94; RESP 18; TEMP 36.6; O2SAT 98
--- NOTE | 2023-03-03 19:11 | ECG_ITS ---
Measurements Intervals [place] Rate: 82 P: 58 MO: 165 QRS: 45 QRSD: 82 T: 54 QT: 371 QTc: 434 Interpretive Statements SINUS RHYTHM FREQUENT VENTRICULAR PREMATURE COMPLEXES BORDERLINE ST ABNORMALITY- ANTERIOR LEADS BASELINE ARTIFACT- I, II, AVR, AVL, AVF, V1 ABNORMAL ECG COMPARED TO ECG 08/03/2020 21:26:32 ST DEVIATION NOW PRESENT Electronically Signed On 03-04-2023 5:48:17 USED CAR LOT ATTENDANT by Micah King D.O.
--- NOTE | 2023-03-03 19:16 | ED.GENADULT ---
HPI - General Adult General Chief complaint: Unspecified Stated complaint: choking episode Time Seen by Provider: 03/03/23 18:06 History of Present Illness HPI narrative: 82-year-old female reports with her daughter at bedside for evaluation after she choked on a piece of cake earlier today. Patient states around 1400 today, she is eating a small piece of cake 1 got lodged in her throat and her son had to give her the Heimlich. States she does not remember if she lost consciousness during this time. Patient and daughter state that the patient has been coughing for the past 3 weeks with occasional yellow mucus, has had generalized weakness as well. States he went to the patient's PCP approximately a week ago he stated her lungs sounded clear and prescribed her Tessalon Perles and inhaler and nasal spray. Patient states she has not had any improvement and now is having nasal congestion today. She denies fever, chest pain or shortness of breath, abdominal pain, urinary complaints. Patient's daughter states the patient has not been performing her daily activities secondary to her generalized weakness. Related Data Home Medications Medication Instructions Recorded Confirmed multivitamin (One-A-Day Essential 1 tablet PO DAILY 06/17/20 02/24/23 tablet) levothyroxine 100 mcg tablet 100 mcg PO DAILY 06/24/22 02/24/23 cholecalciferol (vitamin D3) 50 50 mcg PO DAILY 12/30/22 02/24/23 mcg (2,000 unit) capsule Allergies Allergy/AdvReac Type Severity Reaction Status Date / Time iohexol Allergy Intermediate Rash Verified 03/03/23 16:24 [From contrast - CT, X-RAY] lisinopril AdvReac Mild Cough Verified 03/03/23 16:24 Review of Systems Review of Systems: CONSTITUTIONAL: Denies fever, chills, or sweats. EYES: Denies visual changes, redness, or discharge. ENT: Denies rhinorrhea, congestion, sore throat, or otalgia. CARDIOVASCULAR: Denies chest pain, palpitations, or edema. RESPIRATORY: See HPI GASTROINTESTINAL: Denies abdominal pain, nausea, vomiting, or diarrhea. GENITOURINARY: Denies dysuria or hematuria. SKIN: Denies rash or itching. MUSCULOSKELETAL: Denies back pain, joint pain, or myalgia. NEUROLOGIC: Denies headache, numbness, or weakness. PSYCHIATRIC: Denies anxiety or depression. [facility] Past Medical History Medical History Essential (primary) hypertension Hiatal hernia with gastroesophageal reflux disease without esophagitis History of breast cancer Hypothyroidism, unspecified Mixed hyperlipidemia Prediabetes Thyroid cancer, medullary carcinoma Vitamin D deficiency, unspecified Surgical History Surgical History H/O: hysterectomy (~11/2019) 11/2019 with bladder muscle repair History of total mastectomy of left breast (~05/2012) 05/2012 Status post thyroidectomy (~11/2011) 11/2011 - secondary to medullary thyroid cancer Family History Family History Mother Family history of malignant neoplasm Sibling Family history of Alzheimer's disease Grandparent Family history of thyroid disease Social History Social History Smoking status: Never smoker Second hand tobacco smoke exposure: No Alcohol intake: never Substance use: never Lack of Transportation: No Lack of Food: Never True Current Housing: I Have Housing Concerned About Future Housing: No Difficulty Paying Gas/Electric Bills: No Difficulty Paying for Meds: No Currently Unemployed: No Education: High School Diploma/GED Difficulty w/ Childcare or Family Care: No Living arrangements: with family Additional living arrangements comments: lives with Occupation/Education: retired Gender identity (if verbalized by the patient): Female Sexual Orientation (if Verbalized by the Patient): St
--- NOTE | 2023-03-03 19:20 | PC.NURSE ---
This RN assumed care of patient. This RN took patient report from FROY Sanchez.
[2023-03-03 19:35] VITALS: PULSE 76; RESP 20
[2023-03-03] MEDS: ALBUTEROL SULFATE NEB 2.5 MG/3 ML INH INHALATION (19:35)
[2023-03-03] MEDS: IPRATROPIUM BR 0.02% INH SOLN 0.5 MG/2.5 ML VIAL INHALATION (19:35)
[2023-03-03 19:46] LABS: Basophils Absolute Auto 0.1 K/mm3 (0.0-0.1); Basophils Percent Auto 0.8 % (0.2-1.2); Eosinophils Absolute Auto 0.1 K/mm3 (0-0.3); Eosinophils Percent Auto 2.1 % (0-4.4); Hematocrit 47.8 % (37.0-47.0); Hemoglobin 15.2 g/dL (12.0-15.0); Immature Granulocyte Absolute 0.03 K/mm3 (0.00-0.031); Immature Granulocyte Percent A 0.5 % (0-0.5); Lymphocytes Absolute Auto 1.39 K/mm3 (0.9-3.2); Lymphocytes Percent Auto 21.1 % (18.3-44.2); Mean Corpuscular HGB Conc 31.8 g/dl (32-36); Mean Corpuscular Hemoglobin 31.1 pg (26-34); Mean Corpuscular Volume 97.8 fl (80-100); Mean Platelet Volume 9.3 fl (7.4-10.4); Monocytes Absolute Auto 0.7 K/mm3 (0.1-0.6); Monocytes Percent Auto 9.9 % (2.6-8.5); Neutrophils Absolute Auto 4.3 K/mm3 (1.3-6.7); Neutrophils Percent Auto 65.6 % (45.5-73.1); Platelet Count Result 145 k/mm3 (150-375); Red Blood Count 4.89 M/mm3 (4.2-5.4); Red Cell Distribution Width 13.8 % (11.5-14.5); White Blood Count 6.6 K/mm3 (4.5-10.0)
[2023-03-03 19:52] LABS: Appearance Urine Clear (Clear); Bacteria Urine None Seen /hpf; Bilirubin Urine Negative (Negative); Blood Urine Negative (Negative); Color Urine Yellow (Yellow); Glucose Urine UA Negative (Negative); Ketones Urine Negative (Negative); Leukocyte Esterase Ur Trace LEU/UL (Negative); Nitrate Urine Negative (Negative); Non Pathogenic Casts 0-2; Protein Urine Negative (Negative); RBC Urine 0-2 /hpf (0-2); Specific Grav Ur 1.008 (1.001-1.035); Squamous Epithelial Cell Urine None seen /hpf (Few); Urobilinogen Urine 0.2 mg/dL (<2.0); WBC Urine 0-5 /hpf; pH Urine 7.5 (5.0-9.0)
[2023-03-03 19:53] VITALS: PULSE 73; RESP 18
[2023-03-03 19:55] LABS: Add Urine Microscopic? YES
[2023-03-03 19:58] LABS: Alanine Aminotransferase 36 U/L (6-35); Albumin Level 4.5 g/dL (3.5-5.1); Alkaline Phosphatase 133 U/L (38-126); Anion Gap 12 mmol/L (8-16); Aspartate Amino Transferase 42 U/L (14-36); Bilirubin,Total 0.7 mg/dL (0.2-1.3); Blood Urea Nitrogen 12 mg/dL (7-17); CRP 0.7 mg/dL (<1.0); Calcium 9.6 mg/dL (8.4-10.2); Carbon Dioxide 26 mmol/L (22-30); Chloride 103 mmol/L (98-107); Estimated CRCL calculation 53 ml/min; Estimated Glomerular Filt Rate > 60; Glucose 92 mg/dL (65-110); Sodium 141 mmol/L (137-145)
[2023-03-03 20:07] LABS: Troponin I 0.017 ng/mL (0.000-0.034)
[2023-03-03 20:09] LABS: Erythrocyte Sedimentation Rate 13 mm/hr (0-20)
[2023-03-03 20:22] LABS: Influenza A QL RT-PCR Negative (Negative); Influenza B QL RT-PCR Negative (Negative); SARS-CoV-2 RNA PCR Negative (Negative)
[2023-03-03 22:03] LABS: Free T4 Free Thyroxine Reflex 1.39 ng/dL (0.78-2.19)
--- NOTE | 2023-03-03 22:09 | ECG_ITS ---
Measurements Intervals [place] Rate: 78 P: 45 [place]: 160 QRS: 43 QRSD: 85 T: 51 QT: 391 QTc: 446 Interpretive Statements SINUS RHYTHM VENTRICULAR PREMATURE COMPLEXES BORDERLINE ECG COMPARED TO ECG 03/03/2023 19:41:05 NO SIGNIFICANT CHANGES Electronically Signed On 03-04-2023 5:57:46 RAILROAD CAR LETTERER by Micah King D.O.
[2023-03-03 22:51] LABS: Total Triiodothyronine (T3) 1.86 NG/ML (0.97-1.69)
[2023-03-03 23:11] LABS: Troponin I 0.013 ng/mL (0.000-0.034)
[2023-03-03 23:34] VITALS: BP 158/63; PULSE 73; RESP 18; O2SAT 97
== END 2023-03-03 23:31 | disposition home or self-care (01) ==
PROVIDERS: Emergency Provider Physician Assistant; PCP Family Medicine
DX: T17.228A Food in pharynx causing other injury, initial encounter (principal); J20.9 Acute bronchitis, unspecified; R53.1 Weakness; Z20.822 Contact with and (suspected) exposure to COVID-19; I10 Essential (primary) hypertension; E78.2 Mixed hyperlipidemia; E55.9 Vitamin D deficiency, unspecified; E89.0 Postprocedural hypothyroidism; K21.9 Gastro-esophageal reflux disease without esophagitis; K44.9 Diaphragmatic hernia without obstruction or gangrene; Z85.850 Personal history of malignant neoplasm of thyroid; Z85.3 Personal history of malignant neoplasm of breast; Z90.710 Acquired absence of both cervix and uterus; Z90.12 Acquired absence of left breast and nipple; W44.F3XA Food entering into or through a natural orifice, initial encounter
CPT/HCPCS: 36415; 71046; 80053; 81001; 84439; 84443; 84480; 84484; 85025; 85652; 86140; 87636; 93005; 94640; 99284

== ENCOUNTER 2023-07-08 07:02 | Outpatient (CLI) | payer MEDICARE, MEDICAID, SELFPAY ==
[2023-07-08 08:03] LABS: Basophils Percent Auto 0.7 % (0.2-1.2); Eosinophils Absolute Auto 0.3 K/mm3 (0-0.3); Eosinophils Percent Auto 4.4 % (0-4.4); Hematocrit 43.9 % (37.0-47.0); Hemoglobin 13.7 g/dL (12.0-15.0); Immature Granulocyte Absolute 0.01 K/mm3 (0.00-0.031); Immature Granulocyte Percent A 0.2 % (0-0.5); Immature Platelet Fraction Pct 4.1 % (0.9-11.2); Lymphocytes Absolute Auto 0.73 K/mm3 (0.9-3.2); Lymphocytes Percent Auto 12.8 % (18.3-44.2); Mean Corpuscular HGB Conc 31.2 g/dl (32-36); Mean Corpuscular Hemoglobin 30.6 pg (26-34); Mean Platelet Volume 9.9 fl (7.4-10.4); Monocytes Absolute Auto 0.5 K/mm3 (0.1-0.6); Monocytes Percent Auto 8.4 % (2.6-8.5); Neutrophils Absolute Auto 4.2 K/mm3 (1.3-6.7); Neutrophils Percent Auto 73.5 % (45.5-73.1); Platelet Count Result 121 k/mm3 (150-375); Red Blood Count 4.48 M/mm3 (4.2-5.4); Red Cell Distribution Width 13.7 % (11.5-14.5); White Blood Count 5.7 K/mm3 (4.5-10.0)
[2023-07-08 08:34] LABS: Alanine Aminotransferase 34 U/L (6-35); Albumin Level 3.5 g/dL (3.5-5.1); Alkaline Phosphatase 91 U/L (38-126); Anion Gap 3 mmol/L (8-16); Aspartate Amino Transferase 48 U/L (14-36); Blood Urea Nitrogen 10 mg/dL (7-17); Calcium 8.8 mg/dL (8.4-10.2); Carbon Dioxide 28 mmol/L (22-30); Chloride 108 mmol/L (98-107); Cholesterol 189 mg/dL (0-200); Estimated Glomerular Filt Rate > 60; Glucose 108 mg/dL (65-110); HDL Direct 48 mg/dL; Sodium 139 mmol/L (137-145); Triglycerides 108 mg/dL (<150)
[2023-07-08 10:28] LABS: Vitamin D 25 Hydroxy 45.9 ng/mL
[2023-07-08 12:04] LABS: LDL Cholesterol Direct 107 mg/dL
== END 2023-07-08 07:03 | disposition home or self-care (01) ==
LOC: ANHLAB 07:05
PROVIDERS: PCP Family Medicine; Visit Provider Family Medicine
DX: E78.5 Hyperlipidemia, unspecified (principal); R73.03 Prediabetes; E03.9 Hypothyroidism, unspecified; E53.8 Deficiency of other specified B group vitamins; I10 Essential (primary) hypertension; E55.9 Vitamin D deficiency, unspecified
CPT/HCPCS: 36415; 80053; 80061; 82306; 82607; 83036; 85025; 85055

== ENCOUNTER 2024-01-02 07:59 | Outpatient (CLI) | payer MEDICARE, MEDICAID, SELFPAY ==
[2024-01-02 12:58] LABS: Basophils Absolute Auto 0.1 K/mm3 (0.0-0.1); Basophils Percent Auto 1.1 % (0.2-1.2); Eosinophils Absolute Auto 0.2 K/mm3 (0-0.3); Eosinophils Percent Auto 4.2 % (0-4.4); Hemoglobin 13.8 g/dL (12.0-15.0); Immature Granulocyte Absolute 0.01 K/mm3 (0.00-0.031); Immature Granulocyte Percent A 0.2 % (0-0.5); Immature Platelet Fraction Pct 3.6 % (0.9-11.2); Lymphocytes Absolute Auto 1.08 K/mm3 (0.9-3.2); Lymphocytes Percent Auto 19.9 % (18.3-44.2); Mean Corpuscular HGB Conc 31.4 g/dl (32-36); Mean Corpuscular Hemoglobin 30.9 pg (26-34); Mean Corpuscular Volume 98.4 fl (80-100); Mean Platelet Volume 10.8 fl (7.4-10.4); Monocytes Absolute Auto 0.5 K/mm3 (0.1-0.6); Monocytes Percent Auto 9.9 % (2.6-8.5); Neutrophils Absolute Auto 3.5 K/mm3 (1.3-6.7); Neutrophils Percent Auto 64.7 % (45.5-73.1); Platelet Count Result 132 k/mm3 (150-375); Red Blood Count 4.47 M/mm3 (4.2-5.4); White Blood Count 5.4 K/mm3 (4.5-10.0)
[2024-01-02 13:18] LABS: Chloride 101 mmol/L (98-107)
[2024-01-02 13:20] LABS: Alanine Aminotransferase 25 U/L (6-35); Albumin Level 3.6 g/dL (3.5-5.1); Alkaline Phosphatase 115 U/L (38-126); Anion Gap 4 mmol/L (4-12); Aspartate Amino Transferase 62 U/L (14-36); Bilirubin,Total 0.8 mg/dL (0.2-1.3); Blood Urea Nitrogen 12 mg/dL (7-17); Calcium 8.8 mg/dL (8.4-10.2); Carbon Dioxide 28 mmol/L (22-30); Estimated Glomerular Filt Rate > 60; Glucose 91 mg/dL (65-110); Potassium 4.6 mmol/L (3.4-5.0); Sodium 133 mmol/L (137-145)
[2024-01-02 13:53] LABS: Free T4 Free Thyroxine 1.94 ng/mL (0.78-2.19)
[2024-01-02 19:52] LABS: Hemoglobin A1C 6.1 % (<5.7)
== END 2024-01-02 08:00 | disposition home or self-care (01) ==
PROVIDERS: PCP Family Medicine; Visit Provider Nurse Practitioner Family
DX: E03.9 Hypothyroidism, unspecified (principal); R53.83 Other fatigue; E78.2 Mixed hyperlipidemia; R73.03 Prediabetes
CPT/HCPCS: 36415; 80053; 82607; 83036; 84439; 84443; 85025; 85055

== ENCOUNTER 2024-04-03 12:26 | Outpatient (CLI) | payer MEDICARE, MEDICAID, SELFPAY ==
--- NOTE | 2024-04-03 14:40 | WPDPFTINT ---
PFT Procedure Performed PFT Procedure Performed Spirometry with Pre/Post Bronchodilator Plethysmography (Lung Vol) Diffusing Cap (DLCO) Flow Vol Loop PFT Interpretation This is a pulmonary function test with pre and post-bronchodilator spirometry, plethysmography and diffusing capacity. The test was performed and results interpreted in accordance with the 2019 and 2005 ATS/ERS Task Force guidelines respectively using the Global Lung Function Initiative-2012 reference equations. Patient demonstrated good effort and cooperation. Reproducibility criteria were met. The quality of the pre bronchodilator spirometry maneuver was Grade A and post bronchodilator spirometry maneuver was Grade A. Findings: Spirometry: The contour the inspiratory and expiratory flow tracing are normal. The pre bronchodilator FVC is 2.28 L, 96% predicted. The pre bronchodilator FEV1 is 1.56 L, 87% predicted. The pre bronchodilator FEV1: FVC ratio 69%. The post bronchodilator FVC is 2.32 L, representing a 2% increase. The post bronchodilator FEV1 is 1.63 L, representing a 4% increase. The post bronchodilator FEV1: FVC ratio 70%. Plethysmography: The total lung capacity is 4.94 L, 101% predicted. The functional residual capacity is 3.31 L, 117% predicted. The residual volume is 2.66 L, 111% predicted. Diffusing capacity: The diffusing capacity unadjusted for hemoglobin and carboxyhemoglobin is 13.0, 70% predicted. The diffusing capacity adjusted for alveolar volume is 3.97, 96% predicted. Impression: The spirometry is normal without evidence of an obstructive abnormality. There is no significant improvement after inhaling a single dose of albuterol. The lung volumes are normal. The diffusing capacity is normal. There are no prior studies for comparison
== END 2024-04-03 12:27 | disposition home or self-care (01) ==
PROVIDERS: PCP Family Medicine; Visit Provider Family Medicine
DX: J43.9 Emphysema, unspecified (principal)
CPT/HCPCS: 94060; 94726; 94729

== ENCOUNTER 2024-04-20 13:35 | Outpatient (CLI) | payer MEDICARE, MEDICAID, SELFPAY ==
[2024-04-20 15:52] LABS: Hepatitis B Surface Antigen Negative (Negative)
[2024-04-20 15:57] LABS: HAV RESULT Negative (Negative); Hepatitis B Core IgM Result Negative (Negative)
[2024-04-20 16:09] LABS: Hepatitis C Virus Antibody Negative (Negative)
[2024-04-20 16:19] LABS: Alanine Aminotransferase 22 U/L (6-35); Albumin Level 3.6 g/dL (3.5-5.1); Alkaline Phosphatase 147 U/L (38-126); Aspartate Amino Transferase 34 U/L (14-36); Bilirubin,Total 0.6 mg/dL (0.2-1.3)
[2024-04-24 04:33] LABS: Ceruloplasmin 23 mg/dL (14-48)
[2024-04-25 11:58] LABS: Anti Nuclear Antibody Pattern Nuclear, Homogeneous
[2024-04-25 23:54] LABS: Actin Antibody (IgG) 22 U (<20); LKM 1 Antibody <=20.0 U (<=20.0)
== END 2024-04-20 13:36 | disposition home or self-care (01) ==
PROVIDERS: PCP Family Medicine; Visit Provider Nurse Practitioner Family
DX: K74.60 Unspecified cirrhosis of liver (principal)
CPT/HCPCS: 36415; 80074; 80076; 81596; 82105; 82390; 83520; 85610; 86038; 86039; 86364; 86376

== ENCOUNTER 2024-04-25 08:45 | Outpatient (CLI) | payer MEDICARE, MEDICAID, SELFPAY ==
--- NOTE | ~2024-04-25 | NM_ITS ---
EXAMINATION: NM humble stress w perfusion DATE: 04/25/2024 10:54 INDICATION: Other forms of dyspnea. TECHNIQUE: Rest images were obtained following intravenous administration of 11 mCi Tc99m tetrofosmin (Myoview). The patient was infused intravenously with Lexiscan (regadenoson). Then, 34.8 mCi Tc99m t etrofosmin (Myoview) was administered intravenously, and stress images were obtained. Data was recons tructed into short axis and horizontal and vertical long axis SPECT images. Gated SPECT images were a lso obtained. COMPARISON: None. FINDINGS: There is no definite reversible or fixed perfusion abnormality to suggest ischemia or infar ction. There is no segmental wall motion abnormality. Left ventricular ejection fraction measures > 70%. IMPRESSION: 1. No definite ischemia or infarct. 2. Normal left ventricular ejection fraction measuring >70%. Reviewed, dictated and finalized at location A. LE PACKER
--- NOTE | 2024-04-25 10:00 | EST_ITS ---
Patient Info Name: Renetta Mathis Age: 83 years : 1940 Gender: Female Ht: 64 in Wt: 135 lbs BSA: 1.67 m2 HR: 75 bpm BP: 163 / 67 mmHg Exam Date: 04/25/2024 10:02 AM Exam Location: Echo Lab Patient Status: Outpatient Admit Date: 04/25/2024 Staff Ordering Physician: Lefty Mcdaniel MD Attending Provider: Lefty Mcdaniel MD Exercise Technologist: Lenora Mina [facility] [place] Exercise Physician: Micah King DO Exam Type: CA stress humble w NM Study Info A regadenoson stress test was performed. Summary 1. 1. Negative lexiscan stress test for ischemic ST changes by ECG criteria. 2. 2. Baseline hypertension. 3. 3. Nuclear scan to follow and will be reported separately. Please correlate with it. 4. 4. patient informed of the above results. Protocol: Lexiscan Stress ECG Details Stage: REST Duration (min): 1 min : 59 sec HR (bpm): 76 SBP (mmHg): 163 DBP (mmHg): 67 Stage: REST Duration (min): 4 min : 9 sec HR (bpm): 75 SBP (mmHg): 163 DBP (mmHg): 67 Stage: STAGE 1 Duration (min): 0 min : 59 sec HR (bpm): 96 SBP (mmHg): 163 DBP (mmHg): 67 Stage: RECOVERY Duration (min): 1 min : 0 sec HR (bpm): 100 SBP (mmHg): 163 DBP (mmHg): 67 Stage: RECOVERY Duration (min): 2 min : 0 sec HR (bpm): 91 SBP (mmHg): 172 DBP (mmHg): 75 Stage: RECOVERY Duration (min): 3 min : 0 sec HR (bpm): 88 SBP (mmHg): 160 DBP (mmHg): 68 Stage: RECOVERY Duration (min): 3 min : 17 sec HR (bpm): 88 SBP (mmHg): 160 DBP (mmHg): 68 Rest HR: 75 bpm Peak HR: 101 bpm Rest Sys BP: 163 mmHg Peak Sys BP: 172 mmHg Max Pred HR: 137 bpm % Max Pred HR: 74 % Target HR: 116 bpm Max RPP: 17,372 bpm*mmHg Termination Reason: Completed protocol Cardiac Symptoms: Shortness of breath Total Time: 1 min : 0 sec Rest [place] BP: 67 mmHg [place] BP: 75 mmHg Total Dose: 0.4 mg Resting ECG Sinus rhythm. Stress ECG No ST changes. Arrhythmias None. Report Signatures
== END 2024-04-25 08:46 | disposition home or self-care (01) ==
PROVIDERS: PCP Family Medicine; Visit Provider Family Medicine
DX: R06.89 Other abnormalities of breathing (principal); R68.89 Other general symptoms and signs
CPT/HCPCS: 78452; 93017; A9502; J2785

== ENCOUNTER 2024-05-14 09:34 | Outpatient (CLI) | payer MEDICARE, MEDICAID, SELFPAY ==
[2024-05-14 09:56] LABS: Hematocrit 42.8 % (37.0-47.0); Hemoglobin 13.6 g/dL (12.0-15.0); Mean Corpuscular HGB Conc 31.8 g/dl (32-36); Mean Corpuscular Hemoglobin 30.8 pg (26-34); Mean Corpuscular Volume 97.1 fl (80-100); Mean Platelet Volume 9.4 fl (7.4-10.4); Platelet Count Result 115 k/mm3 (150-375); Red Blood Count 4.41 M/mm3 (4.2-5.4); Red Cell Distribution Width 13.5 % (11.5-14.5); White Blood Count 5.3 K/mm3 (4.5-10.0)
--- OUTSIDE RECORDS SUMMARY | 2024-05-14 10:15 | XMS_ITS | Patient Health Summary ---
Author Organization [facility] Address [address] [place] [address] Care Team Providers Care Electronic Components Assembler Name Role Phone Unknown, Provider Primary Care Provider Unavaila ble Note from [facility],non-owned Affiliates and Associated Physician Practices is amultiple site organization consisting of ambulatory clinics and hospital sitesin [place], [place], [place] and [place]. This disclosure is being madepursuant to the Care Everywhere program and may not contain all information available regarding this patient. Last updated 18.[facility] Allergies No known active allergies Immunizations * INFLUENZA VACCINE, HIGH-DOSE, QUADR. (FLUZONE HIGH-DOSE QUADRIVALENT; 65Y+), 0.7 ML (HD-IIV4)(Given 01/24/2019) Social History Tobacco Use Types Packs/Day Years Used Date Smoking Tobacco: Never Assessed Sex and Gender Information Value Date Recorded Sex Assigned at Not on file Gender Identity Not on file Sexual Orientation Not on file Care Teams Electronic Components Assembler Relationship Specialty Start Date End Date Unknown, Provider PCP - General 01/24/19
--- OUTSIDE RECORDS SUMMARY | 2024-05-14 10:15 | XMS_ITS | Clinical Summary ---
Author Organization [facility] Address [address] [place] [place] [address] Care Team Providers Care Barbed Wire Machine Operator Name Role Phone Unknown, Provider Primary Care Provider Unavaila ble Source Comments [facility],non-owned Affiliates and Associated Physician Practices is amultiple site organization consisting of ambulatory clinics and hospital sitesin [place], [place], [place] and [place]. This disclosure is being madepursuant to the Care Everywhere program and may not contain all information available regarding this patient. Last updated 18.[facility] [employer] Allergies No known active allergies Encounters Date Type Department Care Team Description 05/14/2024 Travel from Last 3 Months Immunizations Name Administration Dates Next Due INFLUENZA VACCINE, HIGH-DOSE , QUADR. (FLUZONE HIGH-DOSE QUADRIVALENT; 65Y+), 0.7 ML (HD-IIV4) 01/24/2019 Social History Tobacco Use Types Packs/Day Years Used Date Smoking Tobacco: Never Assessed Sex and Gender Information Value Date Recorded Sex Assigned at Not on file Gender Identity Not on file Sexual Orientation Not on file Plan of Treatment Upcoming Encounters Date Type Department Care Team (Late st Contact Info) Description 05/18/2024 12:30 PM WEIGHT TRAINER Procedure visit [facility] - [address] [place] [id number] Health Maintenance Due Date Last Done Comments BONE DENSITY TESTING 1940 MEDICARE AWV ? 12 MONTHS 1940 DTAP/TDAP/TD VACCINES (1 - Tdap) 08/17/1959 PNEUMOCOCCAL VACCINE 50+ (1 of 1 - PCV) 1990 ZOSTER VACCINE (1 of 2) 1990 Respiratory Syncytial Virus (RSV) Vaccine Pt: or over 60 yrs (1 - 1-dose 75+ series) 08/17/2015 COVID-19 VACCINE (2023-2 5 season) 2023 INFLUENZA VACCINE (#1) 2023 01/24/2019 DEPRESSION SCREENING 04/18/2024 HEPATITIS B VACCINE Aged Out No longe r eligible based on patient's age to complete this topic HIB VACCINE Aged Out No longer eligi ble based on patient's age to complete this topic HPV VACCINE Aged Out No longer eligi ble based on patient's age to complete this topic MENINGOCOCCAL (Group B) VACCINE Aged Out No longer eligible based on patient's age to complete this topic MENINGOCOCCAL VACCINE Aged Out No nickolas dipika eligible based on patient's age to complete this topic Care Teams Barbed Wire Machine Operator Relationship Specialty Start Date End Date Unknown, Provider PCP - General 01/24/19
--- OUTSIDE RECORDS SUMMARY | 2024-05-14 10:15 | XMS_ITS | Encounter Summary ---
Author Organization [facility] Address [address] [place] [address] Care Team Providers Care Director Women Name Role Phone Unknown, Provider Primary Care Provider Unavaila ble Encounter Details Date Type Department Care Team (Latest Contact Info) Description 05/14/2024 Travel Social History Tobacco Use Types Packs/Day Years Used Date Smoking Tobacco: Never Assessed Sex and Gender Information Value Date Recorded Sex Assigned at Not on file Gender Identity Not on file Sexual Orientation Not on file documented as of this encounter Plan of Treatment Upcoming Encounters Date Type Department Care Team (Late st Contact Info) Description 05/18/2024 12:30 PM BOG WORKER Procedure visit [facility] - [address] [place] [address] documented as of this encounter Visit Diagnoses Not on filedocumented in this encounter Care Teams Director Women Relationship Specialty Start Date End Date Unknown, Provider PCP - General 01/24/19 documented as of this encounter
--- OUTSIDE RECORDS SUMMARY | 2024-05-14 10:15 | XMS_ITS | Referral Summary ---
Author Organization [facility] Address [address] [place] [address] Care Team Providers Care Handle Finisher Name Role Phone Unknown, Provider Primary Care Provider Unavaila ble Source Comments [facility],non-owned Affiliates and Associated Physician Practices is amultiple site organization consisting of ambulatory clinics and hospital sitesin [place], [place], [place] and [place]. This disclosure is being madepursuant to the Care Everywhere program and may not contain all information available regarding this patient. Last updated 18.[facility] Health Encounters Date Type Department Care Team Description 05/14/2024 Travel from Last 3 Months Allergies No known active allergies Immunizations Name Administration Dates Next Due INFLUENZA [...] st Contact Info) Description 05/18/2024 12:30 PM BONING ROOM WORKER Procedure visit [facility] - [place] [address] [place] [id number] Care Teams Handle Finisher Relationship Specialty Start Date End Date Unknown, Provider PCP - General 01/24/19
[2024-05-14 10:18] LABS: INR 1.1; Immunoglobulin G 1253 mg/dL (700-1600); Immunoglobulin M 105 mg/dL (40-230); Prothrombin Time 14.4 Seconds (11.1-14.7)
[2024-05-14 10:45] LABS: Alanine Aminotransferase 20 U/L (6-35); Albumin Level 3.4 g/dL (3.5-5.1); Alkaline Phosphatase 116 U/L (38-126); Anion Gap 6 mmol/L (4-12); Aspartate Amino Transferase 34 U/L (14-36); Bilirubin,Total 0.8 mg/dL (0.2-1.3); Blood Urea Nitrogen 9 mg/dL (7-17); Calcium 8.3 mg/dL (8.4-10.2); Carbon Dioxide 27 mmol/L (22-30); Chloride 105 mmol/L (98-107); Estimated Glomerular Filt Rate > 60; Glucose 132 mg/dL (65-110); Potassium 3.9 mmol/L (3.4-5.0); Sodium 138 mmol/L (137-145)
[2024-05-17 09:03] LABS: Tissue Transglutaminase IgA Ab <1.0 U/mL
== END 2024-05-14 09:35 | disposition home or self-care (01) ==
PROVIDERS: PCP Family Medicine; Visit Provider Nurse Practitioner Family
DX: K74.60 Unspecified cirrhosis of liver (principal); R79.89 Other specified abnormal findings of blood chemistry
CPT/HCPCS: 36415; 80053; 82784; 85027; 85610; 86364

== ENCOUNTER 2024-07-20 07:00 | Outpatient (CLI) | payer MEDICARE, MEDICAID, SELFPAY ==
--- OUTSIDE RECORDS SUMMARY | 2024-07-20 07:03 | XMS_ITS ---
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 Will check thyroid function test and adjust levothyroxine dose accordingly. TSH goal normal range Assessment & Plan (05/31/2022 9:11 PM CHIEF STATION ENGINEER): Continue current levothyroxine dose. Will check thyroid function test and adjust levothyroxine dose accordingly. 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 Assessment & Plan (05/25/2023 2:26 PM CHIEF STATION ENGINEER): Biochemical incomplete response with no major correlate on neck US or PET Tumor markers are elevated but stable since diagnosis for years Plan to obtain tumor markers with neck US this year May consider bone scan and liver MRI as indicated on follow up Assessment & Plan (05/31/2022 9:23 PM CHIEF STATION ENGINEER): Biochemical incomplete response with no recent images to evaluate structural disease Tumor markers are elevated but stable since diagnosis for years Plan to obtain tumor markers with neck US, request PET scan to look for distant metastases If above negative, may consider bone scan and liver MRI as indicated Mixed conductive and sensori neural hearing loss, 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 Past Treatment and Therapy Plans No past plan information found. Lifetime Dose Tracking * Chemical Lifetime Dose Automatic Entry Manual Entr y DLP 769 mGycm 769 mGycm 0 mGycm Resolved Problems Problem Noted Date Diagnosed Date Resolved Date Postoperative state 01/21/2020 05/09/19 21 Urge incontinence of urine 01/21/2020 0 05/09/2020 Incomplete uterovaginal prolapse 10/22/2019 05/09/2020
--- OUTSIDE RECORDS SUMMARY | 2024-07-20 07:03 | XMS_ITS | Referral Summary ---
Author Organization [facility] Address [address] [place] [address] Care Team Providers Care Material Combiner Name Role Phone Patricia Mcdaniel MD Primary Care Provider Lenora Denney COURIER Unavailable [phone] Allergies Active Allergy Reactions Criticality Noted Date Comments Iodinated Contrast Media Rash Medium 03/29/2013 Medications vitamins A,C,E-zinc-tatiana er 7,160-113-100 sdcr-qd-vrfh tablet,delayed release (DR/EC)Indicati ons:eye heAlth Take 1 tablet by mouth 2 (two) times a day Active polyethylene glycol (MIRALAX) 17 gram packetIndicatio ns:constipation Take 1 packet (17 g total) by mouth as needed for constipation Active multivit with calcium,iron,mi n (MULTIPLE VITAMIN, WOMENS ORAL) Take by mouth Active metoprolol XL (TOPROL-XL) 25 mg extended release tablet Take 1 tablet (25 mg total) by mouth daily 2 Active levothyroxine (SYNTHROID) 100 mcg tablet Take 1 tablet (100 mcg total) by mouth daily before breakfast 90 tablet 2 4 Active Active Problems Problem Noted Date Diagnosed Date 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 Will check thyroid function test and adjust levothyroxine dose accordingly. TSH goal normal range Assessment & Plan (05/31/2022 9:11 PM REGISTERED RADIATION THERAPIST): Continue current levothyroxine dose. Will check thyroid function test and adjust levothyroxine dose accordingly. 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 Assessment & Plan (05/25/2023 2:26 PM REGISTERED RADIATION THERAPIST): Biochemical incomplete response with no major correlate on neck US or PET Tumor markers are elevated but stable since diagnosis for years Plan to obtain tumor markers with neck US this year May consider bone scan and liver MRI as indicated on follow up Assessment & Plan (05/31/2022 9:23 PM REGISTERED RADIATION THERAPIST): Biochemical incomplete response with no recent images [...] breast in female, estrogen receptor negative 04/25/2013 Resolved Problems Problem Noted Date Diagnosed Date Resolved Date Postoperative state 01/21/2020 05/09/19 21 Urge incontinence of urine 01/21/2020 0 05/09/2020 Incomplete uterovaginal prolapse 10/22/2019 05/09/2020 Immunizations Immunization Administration Dates Next Due Influenza, Quadrivalent, Hig h Dose, Preservative Free, Intrr 01/29/2020 Influenza, Trivalent, Adjuva nted, Intramuscular 01/31/2018,01/30/2018 Influenza, Trivalent, High D ose, Split, Preservative Free, Intramuscular 01/24/2019,01/17/2017,01/12/2016,02/21 Influenza, Trivalent, Preser vative Free, Intramuscular 01/23/2014,04/25/2013 Influenza, Unspecified 01/24/2019 Moderna SARS-CoV-2 Monovalen t Vaccination (12+ YRS) 07/02/2020,06/04/2020 Pneumococcal Conjugate PCV 13 01/17/2017 Social History Tobacco Use Types Packs/Day Years Used Date Smoking Tobacco: Never Smokeless Tobacco: Never Alcohol Use Standard Drinks/Week Comments Not Currently 0 (1 standard drink = 0.6 oz pur e alcohol) AUDIT-C Answer Date Recorded Q1: How often do you have a drink containing alc ohol? Never 03/05/2021 Average Number of Drinks Not on file 021 Frequency of Binge Drinking Not on file 02/16 Exercise Vital Sign Answer Date Recorde d On average, how many days pe r week do you engage in moderate to strenuous exercise (like a brisk walk)? 0 days 01/21/2020 On average, how many minutes do you engage in exercise at this level? 0 min 01/21/2020 Personal Safety Answer Date Recorded Have you ever been in or are you currently in a harmful physical or emotional relationship or is someone making you feel afraid or unsafe? Denies 03/25/2024 Comments No Sex and Gender Information Value Date Recorded Sex Assigned at Not on file Legal Sex Female 7:50 PM REGISTERED RADIATION THERAPIST Gender Identity Not on file Sexual Orientation Straight 10/06/2019 4: 43 PM CDT Last Filed Vital Signs Vital Sign Reading Time Taken Comments Blood Pressure 136/75 03/26/2024 2:19 AM REGISTERED RADIATION THERAPIST Pulse 77 03/26/2024 2:19 AM REGISTERED RADIATION THERAPIST Temperature 36.3 C (97.3 F) 03/25/2024 11:16 AM REGISTERED RADIATION THERAPIST Respiratory Rate 17 03/26/2024 2:19 AM REGISTERED RADIATION THERAPIST Oxygen Saturation 95% 03/26/2024 2:19 AM REGISTERED RADIATION THERAPIST Inhaled Oxygen Concentration - - Weight 63.1 kg (139 lb 1.8 oz) 03/25/2024 11:16 AM REGISTERED RADIATION THERAPIST Height 165.1 cm (5' 5 ) 03/25/2024 11:16 AM REGISTERED RADIATION THERAPIST Body Mass Index 23.15 03/25/2024 11:16 AM REGISTERED RADIATION THERAPIST Plan of Treatment Not on file Procedures Procedure Name Priority Date/Time Associated Diagnosis Comments BONE DENSITY, TRANSMISSION Routine 02/01/2014 10:38 AM CDT from Last 3 Months or Most Recently Relevant to Health Maintenance Results * BONE DENSITY, TRANSMISSION (02/01/2014 10:38 AM CDT) Anatomical Region Laterality Modality N/A Radiographic Vida ging 02/01/2014 10:3 8 AM CDT Narrative 02/07/2014 3:22 PM CDT MAXINE GUILLEN M.D. RADHA CAMPO M.D. FINAL REPORT ACC# Date Time Exam [id number] Feb 01, 2014 10:38:00 [id number] BONE DEXA Axial EXAMINATION: BONE DENSITOMETRY OF THE SPINE AND HIP DATE OF STUDY: 02/01/2014 HISTORY: 73-year-old postmenopausal woman with breast cancer; prior diagnosis of bladder cancer. She is being treated with Aromasin. Evaluate bone mineral density. FINDINGS (SPINE): The bone mineral density of L1-L4 was assessed by dual-energy x-ray absorptiometry. The average bone mineral density within this region is 0.861 gm/sq-cm. This is 0.6 standard deviations above the mean of the average bone mineral density for age- and gender-matched subjects (the Z-score). It is 1.7 standard deviations below the mean peak bone mineral density in young adults (the T-score). FINDINGS (FEMORAL NECK): The bone mineral density of the left femoral neck was assessed by dual-energy x-ray absorptiometry. The average bone mineral density within the femoral neck region is 0.634 gm/sq-cm. This is 0.1 standard deviations above the mean of the average bone mineral density for age- and gender-matched subjects (the Z-score). It is 1.9 standard deviations below the mean peak bone mineral density in young adults (the T-score). FINDINGS (TOTAL HIP): The bone mineral density of the left hip was assessed by dual-energy x-ray absorptiometry. The average bone mineral density within the total hip region is 0.750 gm/sq-cm. This is 0.1 standard deviations above the mean of the average bone mineral density for age- and gender-matched subjects (the Z-score). It is 1.6 standard deviations below the mean peak bone mineral density in young adults (the T-score). SUMMARY OF CURRENT RESULTS: Region Exam Date BMD T-Score Z-Score AP Spine (L1-L4) 02/01/2014 0.861 -1.7 0.6 Femoral Neck (Left) 02/01/2014 0.634 -1.9 0.1 Total Hip (Left) 02/01/2014 0.750 -1.6 0.1 IMPRESSION: - 1. The bone mineral density of the lumbar spine is mildly decreased. 2. The bone mineral density of the left femoral neck is mildly decreased. 3. The bone mineral density of the left total hip is mildly decreased. 4. Overall, the above findings are diagnostic of low bone mass (osteopenia) by WHO criteria. 5. Calculation of fracture risk using the FRAX model is not appropriate in certain settings. It was not performed in this patient because the patient met one or more of the following conditions: use of anti-resorptive therapy within two years. General comments regarding interpretation of bone mineral density measurements: a) In children, premenopausal woman and males under age 50 not at increased risk for fractures only Z-scores, not T-scores are used to indicate risk. A Z-score above -2.0 is defined as within the expected range for age and Z-score at or less than -2.0 is below the expected range for age . A Z-score below the expected range for age in a patient with recent fractures and/or chronic corticosteroid treatment is consistent with a diagnosis of osteoporosis. b) In post menopausal women and males over 50, comparison of the measured bone mineral density with the average value in young normal subjects (the T-score ) has been found to be useful in assessing fracture risk. Fracture risk approximately doubles for each 1.0 standard deviation (SD) in individual's hip or spine bone mineral density is below the average value of young normal subjects. The World Health Organization (WHO) has defined T-scores of -1.0 to -2.5 as diagnostic of low bone mass (OSTEOPENIA), and T-scores of -2.5 or lower to be diagnostic of OSTEOPOROSIS, based on the site of lowest bone density. Note that there will be a change in reporting format and reference databases as patients move from the younger population (group a) to the older population (group b) The National Osteoporosis Foundation (www.nof.org) recommends adequate intake of calcium and vitamin D and regular weight-bearing exercise in all patients. They recommend pharmacologic treatment in postmenopausal women and men age 50 and older presenting with any of the followin) Osteoporosis, after appropriate evaluation to exclude secondary causes. 2) A hip or vertebral (clinical or radiographic) fracture, regardless of the bone density. 3) Low bone mass (Osteopenia) and one or more of: other prior fractures, secondary causes associated with high risk of fracture (such as glucocorticoid use or total immobilization), or computed high risk of fracture (10-yr probability of hip fracture >= 3% or a 10-yr probability of any major osteoporosis-related fracture >= 20% based on the [place].-adapted WHO algorithm), available at http://www.shef.ac.uk/FRAX). ADDENDUM Addendum issued 02/07/2014 at 3:[address]. Bansal's office informed us that the patient did not have a prior history of bladder cancer. The CORRECTED first sentence in the history should state 73-year-old postmenopausal woman with breast cancer. Requested By: Dictated By: RADHA CAMPO M.D. on Feb 01 2014 10:46A This document has been electronically signed by: RADHA CAMPO M.D. on Feb 01 2014 3:10P Addendum Dictated by: MAXINE GUILLEN M.D. on Feb 07 2014 3:23P This Addendum has been electronically signed by: MAXINE GUILLEN M.D. on Feb 07 2014 3:22P Procedure Note Provider, MD Gilberto - 08/14/2016 MAXINE GUILLEN M.D. RADHA CAMPO M.D. FINAL REPORT ACC# Date Time Exam [id number] Feb 01, 2014 10:38:00 [id number] BONE DEXA Axial EXAMINATION: BONE DENSITOMETRY OF THE SPINE AND HIP DATE OF STUDY: 02/01/2014 HISTORY: 73-year-old postmenopausal woman with breast cancer; prior diagnosis of bladder cancer. She is being treated with Aromasin. Evaluate bone mineral density. FINDINGS (SPINE): The bone mineral density of L1-L4 was assessed by dual-energy x-ray absorptiometry. The average bone mineral density within this region is 0.861 gm/sq-cm. This is 0.6 standard deviations above the mean of the average bone mineral density for age- and gender-matched subjects (the Z-score). It is 1.7 standard deviations below the mean peak bone mineral density in young adults (the T-score). FINDINGS (FEMORAL NECK): The bone mineral density of the left femoral neck was assessed by dual-energy x-ray absorptiometry. The average bone mineral density within the femoral neck region is 0.634 gm/sq-cm. This is 0.1 standard deviations above the mean of the average bone mineral density for age- and gender-matched subjects (the Z-score). It is 1.9 standard deviations below the mean peak bone mineral density in young adults (the T-score). FINDINGS (TOTAL HIP): The bone mineral density of the left hip was assessed by dual-energy x-ray absorptiometry. The average bone mineral density within the total hip region is 0.750 gm/sq-cm. This is 0.1 standard deviations above the mean of the average bone mineral density for age- and gender-matched subjects (the Z-score). It is 1.6 standard deviations below the mean peak bone mineral density in young adults (the T-score). SUMMARY OF CURRENT RESULTS: Region Exam Date BMD T-Score Z-Score AP Spine (L1-L4) 02/01/2014 0.861 -1.7 0.6 Femoral Neck (Left) 02/01/2014 0.634 -1.9 0.1 Total Hip (Left) 02/01/2014 0.750 -1.6 0.1 IMPRESSION: - 1. The bone mineral density of the lumbar spine is mildly decreased. 2. The bone mineral density of the left femoral neck is mildly decreased. 3. The bone mineral density of the left total hip is mildly decreased. 4. Overall, the above findings are diagnostic of low bone mass (osteopenia) by WHO criteria. 5. Calculation of fracture risk using the FRAX model is not appropriate in certain settings. It was not performed in this patient because the patient met one or more of the following conditions: use of anti-resorptive therapy within two years. General comments regarding interpretation of bone mineral density measurements: a) In children, premenopausal woman and males under age 50 not at increased risk for fractures only Z-scores, not T-scores are used to indicate risk. A Z-score above -2.0 is defined as within the expected range for age and Z-score at or less than -2.0 is below the expected range for age . A Z-score below the expected range for age in a patient with recent fractures and/or chronic corticosteroid treatment is consistent with a diagnosis of osteoporosis. b) In post menopausal women and males over 50, comparison of the measured bone mineral density with the average value in young normal subjects (the T-score ) has been found to be useful in assessing fracture risk. Fracture risk approximately doubles for each 1.0 standard deviation (SD) in individual's hip or spine bone mineral density is below the average value of young normal subjects. The World Health Organization (WHO) has defined T-scores of -1.0 to -2.5 as diagnostic of low bone mass (OSTEOPENIA), and T-scores of -2.5 or lower to be diagnostic of OSTEOPOROSIS, based on the site of lowest bone density. Note that there will be a change in reporting format and reference databases as patients move from the younger population (group a) to the older population (group b) The National Osteoporosis Foundation (www.nof.org) recommends adequate intake of calcium and vitamin D and regular weight-bearing exercise in all patients. They recommend pharmacologic treatment in postmenopausal women and men age 50 and older presenting with any of the followin) Osteoporosis, after appropriate evaluation to exclude secondary causes. 2) A hip or vertebral (clinical or radiographic) fracture,regardless of the bone density. 3) Low bone mass (Osteopenia) and one or more of: other prior fractures, secondary causes associated with high risk of fracture (such as glucocorticoid use or total immobilization), or computed high risk of fracture (10-yr probability of hip fracture >= 3% or a 10-yr probability of any major osteoporosis-related fracture >= 20% based on the [place].-adapted WHO algorithm), available at http://www.shef.ac.uk/FRAX). ADDENDUM Addendum issued 02/07/2014 at 3:[address]. Bansal's office informed us that the patient did not have a prior history of bladder cancer. The CORRECTED first sentence in the history should state 73-year-old postmenopausal woman with breast cancer. Requested By: Dictated By: RADHA CAMPO M.D. on Feb 01 2014 10:46A This document has been electronically signed by: RADHA CAMPO M.D. on Feb 01 2014 3:10P Addendum Dictated by: MAXINE GUILLEN M.D. on Feb 07 2014 3:23P This Addendum has been electronically signed by: MAXINE GUILLEN M.D. on Feb 07 2014 3:22P us Historical Provider MD HOLLINS XR PROCEDURES Final R esult from Last 3 Months or Most Recently Relevant to Health Maintenance Insurance MEDICARE IDPA MEDICARE IDPA MEDICARE [facility] Address: [address] [address] [place] [address] IDPA Advance Directives For more information, please contact: [phone] Documents on File Type Date Recorded Patient Theatrical Trouper Expl anation ADVANCE DIRECTIVE 12/12/2019 1:21 PM Power of Crop Duster Helper-Financial/Medical * Full Code (Latest Code Status on File) Date Activated Date Inactivated Comments 12/12/2019 9:14 PM 12/13/2019 4:43 PM Care Teams Material Combiner Relationship Specialty Start Date End Date Patricia Mcdaniel MD PCP - General Family Practice 09/11/20 Lenora Denney NP [address] [place] [id number] Nurse Practitioner Medical Oncology 03/15/22
--- OUTSIDE RECORDS SUMMARY | 2024-07-20 07:03 | XMS_ITS | Encounter Summary ---
Author Organization [facility] Address [address] [place] [address] Phone Care Team Providers Care Flosser Name Role Phone Teresa Gutierrez MD, Navi Luevano Primary Care Provider Patricia Mcdaniel MD Primary Care Provider Lenora Denney BRIQUETTE MACHINE OPERATOR Unavailable [phone]- [phone] Encounter Details Date Type Department Care Team (Late st Contact Info) Description 09/28/2018 Telephone [facility] Oncology [address] [place] [address] Katrina Llamas B.A. 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[employer] Gender Identity Not on file Sexual Orientation Straight 10/06/2019 4: 43 PM CDT documented as of this encounter Plan of Treatment Not on file documented as of this encounter Visit Diagnoses Not on filedocumented in this encounter Care Teams Flosser Relationship Specialty Start Date End Date Navi Moore Jr., MD [address] [place] [address] PCP - General 07/05/16 09/10/20 Patricia Mcdaniel MD [address] [place] [address] PCP - General Family Practice 09/11/20 Lenora Denney NP [address] [address] Nurse Practitioner Medical Oncology 03/15/22 documented as of this encounter
--- OUTSIDE RECORDS SUMMARY | 2024-07-20 07:03 | XMS_ITS | Clinical Summary ---
Author Organization [facility] Address [address] [place] [address] Care Team Providers Care Decal Decorator Name Role Phone Unknown, Provider Primary Care Provider Unavaila ble Source Comments [facility],non-owned Affiliates and Associated Physician Practices is amultiple site organization consisting of ambulatory clinics and hospital sitesin [place], [place], [place] and [place]. This disclosure is being madepursuant to the Care Everywhere program and may not contain all information available regarding this patient. Last updated 18.[facility] Allergies No known active allergies Encounters Date Type Department Care Team Description 05/18/2024 12:30 PM CUTTING DEPARTMENT SUPERVISOR Procedure visit [facility] - [address] [place] [address] Unknown, Provider Hepatic cirrhosis, unspecified hepatic cirrhosis type, unspecified whether ascites present 05/18/2024 Travel 05/14/2024 Travel from Last 3 Months Immunizations [...] Orientation Not on file Plan of Treatment Health Maintenance Due Date Last Done Comments BONE DENSITY TESTING 1940 DTAP/TDAP/TD VACCINES (1 - Tdap) 08/17/1959 PNEUMOCOCCAL VACCINE 50+ (1 of 2 - PCV) 08/17/1959 ZOSTER VACCINE (1 of 2) 1990 HEPATITIS B VACCINE (1 of 3 - Risk 3-dose series) 2000 Respiratory Syncytial Virus (RSV) Vaccine Pt: or over 60 yrs (1 - 1-dose 75+ series) 08/17/2015 COVID-19 VACCINE ( season) 2023 07/02/2020, 06/04/2020 INFLUENZA VACCINE (#1) 2023 9, 01/31/2018, 01/30/2018, Additional history exists DEPRESSION SCREENING 04/18/2024 HIB VACCINE Aged Out No longer eligi ble based on patient's age to complete this topic HPV VACCINE Aged Out No longer eligi ble based on patient's age to complete this topic MENINGOCOCCAL (Group B) VACCINE SHARED DECISION-MAKING Aged Out No longer eligible based on patient's age to complete this topic MENINGOCOCCAL GROUPS A/C/Y/W VACCINE Aged Out No longer eligible based on patient's age to complete this topic Procedures Procedure Name Priority Date/Time Associated Diagnosis Comments MI LIVER ELASTOGRAPHY Routine 05/18/2024 12:27 PM CUTTING DEPARTMENT SUPERVISOR Hepatic cirrhosis, unspecified hepatic cirrhosis type, unspecified whether ascites present from Last 3 Months Results * MI LIVER ELASTOGRAPHY (05/18/2024 12:27 PM CUTTING DEPARTMENT SUPERVISOR) Narrative Benja Suero MD - 05/18/2024 12:27 PM CUTTING DEPARTMENT SUPERVISOR Benja Suero MD 05/20/2024 12:05 PM Diagnosis: Hepatic cirrhosis, unspecified hepatic cirrhosis type, unspecified whether ascites present (HCC) RN verified patient NPO for prior 3 hours. Procedure explained. Date of Exam: 05/18/2024 Liver Stiffness: (LSM, kPa) median: 6.3 IQR/Median% (ideally < 30%): 7% CAP (controlled attenuation parameter): 246 Technical Difficulty: Difficulty obtaining consistent images. Ordering Provider: Jayne Thomas APRN-CNP Fibroscan interpretation: I have personally reviewed the Fibroscan report and associated tracings. The calculated Liver Stiffness Measurement (LSM, kPa) indicates that: The probability of advanced liver fibrosis is: low. The loss of ultrasound signal, (controlled attenuation parameter, CAP [dB/m]), indicates that the probability of hepatic steatosis is: low. Benja Keene MD The following criteria are used to indicate the probability of advanced (stage 3-4) fibrosis: < 7.0 kPa: low 7.0-8.9 kPa: low to moderate 9.0-14.9 kPa: moderate 15-20 kPa: high > 20 kPa: very high Liver stiffness > 12 kPa is associated with an increased risk of cirrhosis-related complications over the next 3-5 years (Jaya, 2022). Liver stiffness > 20 kPa is also associated with a high probability of complications of portal hypertension including varices and ascites. Liver stiffness > 50 kPa is associated with a high risk of variceal bleeding. These interpretations are based on the following published data: Jaya J, Yudi m H, Enrique M, Cody C, Dave M, Cure S, Vladimiro J, Nasr P, Tallab L, Canivet CM, Kejuan luis S, S nchez Y, Dinrandy E, Krystal A, Dong M, Abelardo J, Maritza A and Paniagua-Paulino M. Non-invasive tests accurately stratify patients with NAFLD based on their risk of liver-related events. J Hepatol (2021) 76: 0840-7885. Pauly PJ, José M, Jinny M, et al. Accuracy of FibroScan controlled attenuation parameter and liver stiffness measurement in assessing steatosis and fibrosis in patients with nonalcoholic fatty liver disease. Gastroenterology 2019;156:1633-2609. Dewayne LOPEZ, Zenon R, Van Camilo HYDE, et al. Vibration-controlled transient elastography to assess fibrosis and steatosis in patients with nonalcoholic fatty liver disease. Clin Gastroenterol Hepatol 2019;17:156-163. Note that scores have been developed that incorporate the Fibroscan liver stiffness measurement from large cohorts of patients with liver biopsies to further refine the ability of Fibroscan to identify patients with MASH and advanced fibrosis. These include the FAST (Fibroscan-AST) score (Michelle, 2022) and the Agile3+ and Agile4 scores (Jessica, 2023; Marisol, 2024). Michelle DUNHAM, Van Nateusebio ML, Rohan White, Nathan Bourgeois, et al. Validation of the accuracy of the FAST score for detecting patients with at-risk nonalcoholic steatohepatitis (POWELL) in a [place] cohort and comparison to other non-invasive algorithms. PLoS ONE (2021) 17: [id number]. Jessica AJ, Antonio J, Francisco ZM, et al. Enhanced diagnosis of advanced fibrosis and cirrhosis in individuals with NAFLD using FibroScan-based Agile scores. J Hepatol (2022) 78: 247-259. Marisol et al. Vibration-controlled transient elastography scores to predict liver-related events in steatotic liver disease. RONALD (2023) 331: 9894-1516 Fibroscan LSM can also be used with laboratory parameters without formulas to assess prognosis. According to the Baveno-VII criteria (Bonilla, 2021), Fibroscan LSM <=15 kPa plus a platelet count of >=951m709/L rules out clinically significant portal hypertension (sensitivity and negative predictive value >90%) in patients with compensated advanced chronic liver disease. Bonilla R, Maximo J, Carroll-Zina G, Jamie T, Vick C on behalf of the Baveno VII Faculty. Baveno VII--Renewing consensus in portal hypertension. J Hepatol (2021) 76: 959-974 Assessing the likelihood of advanced fibrosis in patients with intermediate liver stiffness measurement (LSM) by Fibroscan (e.g., 8-15 kPa) can be improved by also calculating the FIB-4 score (Alesha et al. Hepatology Communications 2019;3:5082-8904) or NAFLD Fibrosis score (Cee et al. Clinical Gastroenterology and Hepatology 2019;17:9139-2385 using routine clinical data. Notes: 1. Fibroscan cannot reliably identify earlier stages of fibrosis (ie distinguish F0 from F1 and F2) and thus a histologic stage cannot be predicted from the Fibroscan reading. 2. Liver stiffness can be increased by factors other than fibrosis including passive congestion, infiltrative processes, active alcoholism, recent moderate alcohol consumption in the 2 weeks before the exam, biliary obstruction and marked inflammation. The interpretation of the Fibroscan result provided above may not have taken such clinical factors into account. 3. Identifying steatosis by an elevated CAP score (> 250 db/m) is useful for establishing a diagnosis of steatotic liver disease. However the severity of steatosis does not correlate with liver related outcomes. Disease etiology also influences Fibroscan cutoff values for fibrosis stages and the following cutoffs have been proposed (Sharmila et al, Clin Gastro Hepatol 2015; 13:27-36): Cutoffs for Stage 3 and Stage 4 fibrosis respectively: Hepatitis B: >9 and >11.7 kPa Hepatitis C: >9.5 and >12.5 kPa HCV-HIV: >11 and >14 kPa Cholestatic liver diseases: >10 and >17.9 kPa MASLD/MASH: >10 and >14 kPa CAP estimates of steatosis: normal <200 dB/m mild 200 to 250 dB/m moderate 250-290 dB/m substantial > 290 dB/m (Note that Fibroscan is not a quantitative measure of liver fat.) These criteria are estimates and may change as additional supporting data becomes available. (This additional interpretive data was last updated 04/20/24.) [email or web address] Benja Suero MD PROCEDURE/ MINOR SURGICAL ORDERABLES from Last 3 Months Care Teams Decal Decorator Relationship Specialty Start Date End Date Unknown, Provider PCP - General 01/24/19
--- OUTSIDE RECORDS SUMMARY | 2024-07-20 07:03 | XMS_ITS | Clinical Summary ---
Author Organization [facility] Address [address] [place] [address] Care Team Providers Care Melter Supervisor Open Hearth Furnace Name Role Phone Patricia Mcdaniel MD Primary Care Provider Lenora Denney GENERAL DENTIST Unavailable [phone] Allergies Active Allergy Reactions Criticality Noted Date Comments Iodinated Contrast Media Rash Medium 03/29/2013 Medications vitamins A,C,E-zinc-tatiana er 7,160-113-100 hoeb-gy-fyok tablet,delayed release (DR/EC)Indicati ons:eye heAlth Take 1 [...] 05/31/2022 Assessment & Plan (05/25/2023 2:27 PM PRINT MACHINE OPERATOR): Continue current levothyroxine dose. Will check thyroid function test and adjust levothyroxine dose accordingly. TSH goal normal range Assessment & Plan (05/31/2022 9:11 PM PRINT MACHINE OPERATOR): Continue current levothyroxine dose. Will check thyroid function test and adjust levothyroxine dose accordingly. 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 Assessment & Plan (05/25/2023 2:26 PM PRINT MACHINE OPERATOR): Biochemical incomplete response with no major correlate on neck US or PET Tumor markers are elevated but stable since diagnosis for years Plan to obtain tumor markers with neck US this year May consider bone scan and liver MRI as indicated on follow up Assessment & Plan (05/31/2022 9:23 PM PRINT MACHINE OPERATOR): Biochemical incomplete response with no recent images [...] YRS) 07/02/2020,06/04/2020 Pneumococcal Conjugate PCV 13 01/17/2017 Surgical History Surgery Date Site/Laterality Comments PORT REMOVAL 05/07/2014 N/A IR FINE NEEDLE ASPIRATION W IMAGE GUIDANCE 03/27/2013 N/A IR FINE NEEDLE ASPIRATION W IMAGE GUIDANCE 03/19/2013 N/A HYSTERECTOMY ANTERIOR AND POSTERIOR VAGINAL REPAIR ENTEROCELE REPAIR THYROIDECTOMY 04/18/2011 - 04/17/2012 MASTECTOMY Medical History Medical History Date Comments Personal history of malignan t neoplasm of thyroid History of malignant neoplas m of thyroid - (Added by TW Conv) Malignant neoplasm of left f emale breast (HCC) Malignant neoplasm of unspec ified site of left female breast - (Added by TW Conv) Malignant neoplasm of left f emale breast (HCC) Malignant neoplasm of unspec ified site of left female breast - (Added by TW Conv) Status post radiation therapy [facility] in 2012 for breast cancer Status post chemotherapy last in 2012 for breast cancer Family History Medical History Relation Name Comments Thyroid cancer Daughter lung lesion Daughter surgically alcides ailyn with continued monitoring Colon cancer Mother 1 brother with Parkinson's Other 1 brother with kidney cancer Other 1 sister with stomach cancer Other Anesthesia problems Neg Hx Relation Name Status Comments Brother 9 brothers Alive Daughter Father Mother Other Sister 5 sisters Alive Social History Tobacco Use Types Packs/Day Years [...] on file Legal Sex Female 7:50 PM PRINT MACHINE OPERATOR Gender Identity Not on file Sexual Orientation Straight 10/06/2019 4: 43 PM CDT Obstetrics History Para Term AB IAB SAB Ectopic Multiple Livin g Live Births 7 7 7 7 7 Date Outcome GA Total Labor Labor/2nd/3rd Weight Sex Type Anes PTL Erica A1 A5 Name Clin Term Vag-S pont Living Term Vag-S pont Living Term Vag-S pont Living Term Vag-S pont Living Term Vag-S pont Living Term Vag-S pont Living Term Vag-S pont Living Last Filed Vital Signs Vital Sign Reading Time Taken Comments Blood Pressure 136/75 03/26/2024 2:19 AM PRINT MACHINE OPERATOR Pulse 77 03/26/2024 2:19 AM PRINT MACHINE OPERATOR Temperature 36.3 C (97.3 F) 03/25/2024 11:16 AM PRINT MACHINE OPERATOR Respiratory Rate 17 03/26/2024 2:19 AM PRINT MACHINE OPERATOR Oxygen Saturation 95% 03/26/2024 2:19 AM PRINT MACHINE OPERATOR Inhaled Oxygen Concentration - - Weight 63.1 kg (139 lb 1.8 oz) 03/25/2024 11:16 AM PRINT MACHINE OPERATOR Height 165.1 cm (5' 5 ) 03/25/2024 11:16 AM PRINT MACHINE OPERATOR Body Mass Index 23.15 03/25/2024 11:16 AM PRINT MACHINE OPERATOR Plan of Treatment Health Maintenance Due Date Last Done Comments Depression Screening 1940 DTaP/Tdap/Td Vaccine (1 - Tdap) 08/17/1951 Hepatitis B Screening 1958 Zoster Vaccine (1 of 2) 1990 Well Visit 65+ 2005 Osteoporosis Screening-Bone Density Scan 02/02/2016 02/01/2014 Pneumococcal vaccine 65+ (2 of 2 - PPSV23) 01/17/2018 01/17/2017 Fall Risk Assessment 12/12/2020 12/13/2019 Covid-19 Vaccine (3 - 2023-2 5 season) 2023 07/02/2020, 06/04/2020 Influenza Vaccine (Season Ended) 2024 01/29/2020, 01/24/2019, 01/24/2019, Additional history exists Procedures Procedure Name Priority Date/Time Associated Diagnosis [...] M.D. FINAL REPORT ACC# Date Time Exam [id number] Feb 01, 2014 10:38:00 06331 BONE DEXA Axial EXAMINATION: BONE DENSITOMETRY OF [...] M.D. FINAL REPORT ACC# Date Time Exam [id number] Feb 01, 2014 10:38:00 55900 BONE DEXA Axial EXAMINATION: BONE DENSITOMETRY OF [...] 07 2014 3:22P us Historical Provider MD IMG XR PROCEDURES Final R esult from Last 3 Months or Most Recently Relevant to Health Maintenance Insurance MEDICARE [facility] MEDICARE [facility] MEDICARE [facility] Advance Directives For more information, please contact: [phone] Documents on File Type Date Recorded Patient Computer Hardware Designer Expl anation ADVANCE DIRECTIVE 12/12/2019 1:21 PM Power of Tax Assessor-Financial/Medical * Full Code (Latest Code Status on File) Date Activated Date Inactivated Comments 12/12/2019 9:14 PM 12/13/2019 4:43 PM Care Teams Melter Supervisor [employer] Furn[employer] Relationship Specialty Start Date End Date Patricia Mcdaniel MD PCP - General Family Practice 09/11/20 Lenora Denney NP [address] [place] [id number] Nurse Practitioner Medical Oncology 03/15/22
[2024-07-20 07:44] LABS: Basophils Absolute Auto 0.1 K/mm3 (0.0-0.1); Basophils Percent Auto 1.3 % (0.2-1.2); Eosinophils Absolute Auto 0.1 K/mm3 (0-0.3); Hematocrit 42.9 % (37.0-47.0); Hemoglobin 13.5 g/dL (12.0-15.0); Immature Granulocyte Absolute 0.01 K/mm3 (0.00-0.031); Immature Granulocyte Percent A 0.2 % (0-0.5); Immature Platelet Fraction Pct 2.2 % (0.9-11.2); Lymphocytes Absolute Auto 0.92 K/mm3 (0.9-3.2); Lymphocytes Percent Auto 19.4 % (18.3-44.2); Mean Corpuscular HGB Conc 31.5 g/dl (32-36); Mean Corpuscular Hemoglobin 30.5 pg (26-34); Mean Corpuscular Volume 96.8 fl (80-100); Mean Platelet Volume 9.8 fl (7.4-10.4); Monocytes Absolute Auto 0.5 K/mm3 (0.1-0.6); Neutrophils Absolute Auto 3.1 K/mm3 (1.3-6.7); Neutrophils Percent Auto 65.1 % (45.5-73.1); Platelet Count Result 139 k/mm3 (150-375); Red Blood Count 4.43 M/mm3 (4.2-5.4); Red Cell Distribution Width 13.5 % (11.5-14.5); White Blood Count 4.7 K/mm3 (4.5-10.0)
[2024-07-20 07:56] LABS: Alanine Aminotransferase 17 U/L (6-35); Albumin Level 3.6 g/dL (3.5-5.1); Alkaline Phosphatase 156 U/L (38-126); Anion Gap 5 mmol/L (4-12); Aspartate Amino Transferase 32 U/L (14-36); Bilirubin,Total 0.6 mg/dL (0.2-1.3); Blood Urea Nitrogen 10 mg/dL (7-17); Calcium 8.5 mg/dL (8.4-10.2); Carbon Dioxide 27 mmol/L (22-30); Chloride 107 mmol/L (98-107); Cholesterol 190 mg/dL (0-200); Estimated Glomerular Filt Rate > 60; Glucose 105 mg/dL (65-110); HDL Direct 53 mg/dL; Potassium 4.2 mmol/L (3.4-5.0); Sodium 139 mmol/L (137-145); Triglycerides 104 mg/dL (<150)
[2024-07-20 08:08] LABS: LDL Cholesterol Direct 95 mg/dL
[2024-07-20 08:14] LABS: Hemoglobin A1C 6.1 % (<5.7)
[2024-07-20 09:28] LABS: Vitamin D 25 Hydroxy 26.1 ng/mL
== END 2024-07-20 07:01 | disposition home or self-care (01) ==
LOC: ANHLAB 07:01
PROVIDERS: PCP Family Medicine; Visit Provider Family Medicine
DX: E03.9 Hypothyroidism, unspecified (principal); E53.8 Deficiency of other specified B group vitamins; R73.03 Prediabetes; I10 Essential (primary) hypertension; E55.9 Vitamin D deficiency, unspecified
CPT/HCPCS: 36415; 80053; 80061; 82306; 82607; 83036; 84443; 85025; 85055

== ENCOUNTER 2024-08-10 14:26 | Emergency (ER) | payer MEDICARE, MEDICAID, SELFPAY ==
--- NOTE | ~2024-08-10 | XR_ITS ---
XR foot LT min 3V Ordering provider: Rachelle Radford NP History: . pain and swelling 4th and 5th metatarsals . Comparison: None. FINDINGS: BONES: No acute fracture or dislocation. Osteopenia of the bones. JOINT SPACES: Narrowing of the proximal and distal interphalangeal joints. No tarsal coalition. SOFT TISSUES: Soft tissue swelling over the distal fifth metatarsal bone with lucency which may indic ate infection. IMPRESSION: No acute osseous abnormality left foot. Polyarticular osteoarthritic changes. Reviewed, dictated and finalized at location A.
[2024-08-10 14:43] VITALS: BP 153/72; PULSE 70; RESP 19; TEMP 36.6; O2SAT 99
--- NOTE | 2024-08-10 14:53 | ED.LOWEXIN ---
HPI - Extremity Injury (Lower) General Chief Complaint: Extremity Injury, Lower Stated Complaint: left foot injury Time Seen by Provider: 08/10/24 14:53 Source: patient Mode of arrival: ambulatory Limitations: no limitations History of Present Illness HPI Narrative: 83-year-old female presents with complaint of pain, swelling to left foot. Patient states yesterday while outside she was walking through her gait and the gate hit against her left foot. States she had pain all day yesterday. Pain improved today but continues to have swelling and bruising. Patient wants to make sure she does not have fracture. Range of motion and distal neurovascularly intact. All systems reviewed and negative except as noted above. Related Data Home Medications ?Medication ?Instructions ?Recorded ?Confirmed ?Last Taken ?Type multivitamin (One-A-Day Essential 1 tablet PO DAILY 06/17/20 07/18/24 Unknown History tablet) levothyroxine 100 mcg tablet 100 mcg PO DAILY 06/24/22 07/18/24 Unknown History Allergies Allergy/AdvReac Type Severity Reaction Status Date / Time iohexol (From contrast - CT, Allergy Intermediate Rash Verified 08/10/24 14:41 X-RAY) lisinopril AdvReac Mild Cough Verified 08/10/24 14:41 Review of Systems Review of Systems: CONSTITUTIONAL: Denies fever, chills, or sweats. EYES: Denies visual changes, redness, or discharge. ENT: Denies rhinorrhea, congestion, sore throat, or otalgia. CARDIOVASCULAR: Denies chest pain, palpitations, or edema. RESPIRATORY: Denies cough or dyspnea. GASTROINTESTINAL: Denies abdominal pain, nausea, vomiting, or diarrhea. GENITOURINARY: Denies dysuria or hematuria. SKIN: Denies rash or itching. MUSCULOSKELETAL: Denies back pain, joint pain, or myalgia. Reports pain, bruising and swelling to left foot. NEUROLOGIC: Denies headache, numbness, or weakness. PSYCHIATRIC: Denies anxiety or depression. All other systems reviewed are negative, except as documented in HPI. [facility] Past Medical History Medical History Cirrhosis of liver Elevated LFTs Prediabetes History of breast cancer (~2012) Essential (primary) hypertension Hiatal hernia with gastroesophageal reflux disease without esophagitis Hypothyroidism, unspecified Mixed hyperlipidemia Vitamin D deficiency, unspecified Thyroid cancer, medullary carcinoma Surgical History Surgical History Status post thyroidectomy (~11/2011) 11/2011 - secondary to medullary thyroid cancer History of total mastectomy of left breast (~05/2012) 05/2012 H/O: hysterectomy (~11/2019) 11/2019 with bladder muscle repair Family History Family History Mother Family history of malignant neoplasm Sibling Family history of Alzheimer's disease Grandparent Family history of thyroid disease Social History Social History Smoking status: Never smoker Second hand tobacco smoke exposure: No Alcohol intake: never Substance use: never Lack of Transportation: No Lack of Food: Never True Current Housing: I Have Housing Concerned About Future Housing: No Difficulty Paying Gas/Electric Bills: No Difficulty Paying for Meds: No Currently Unemployed: No Education: High School Diploma/GED Difficulty w/ Childcare or Family Care: No Living arrangements: with family Additional living arrangements comments: lives with Occupation/Education: retired Gender identity (if verbalized by the patient): Female Sexual Orientation (if Verbalized by the Patient): Straight or Heterosexual Agree to blood products: Yes Comments At time of signature, agree with nursing past medical, surgical, social and family history. There is no relevant family history pertinent to the presenting complaint. Exam Narrative: GENERAL: This is a well-nourished, well-developed patient, in no apparent distress. HEAD: normocephalic, atraumatic. EYES: PERRL. Sclera clear/white. Vision is grossly intact. EARS: External ears normal NOSE: External nose normal NECK: Neck supple, non-tender without lymphadenopathy, masses or thyromegaly. CARDIOVASCULAR: Regular rate and rhythm without murmurs, gallops, or rubs. RESPIRATORY: Clear to auscultation. Breath sounds equal bilaterally. No wheezes, rales, or rhonchi. SKIN: warm, Dry, intact with no suspicious lesions or rash, good texture and turgor. NEURO: awake, alert, and oriented to person, place and time. There were no obvious focal neurologic abnormalities. EXTREMITIES: No joint tenderness, effusion. bruising to dorsal, lateral aspect L foot with tenderness to 4th and 5th metatarsals and swelling. no deformity. CMS intact. Course Course Level of Care: Express Care Visit Vital Signs Vital signs: Vital Signs Temperature 36.6 C 08/10/24 14:43 Pulse Rate 70 08/10/24 14:43 Respiratory Rate 19 08/10/24 14:43 Blood Pressure 153/72 H 08/10/24 14:43 Pulse Oximetry 99 08/10/24 14:43 Oxygen Delivery Room Air 08/10/24 14:43 Temperature 36.6 C 08/10/24 14:43 Pulse Rate 70 08/10/24 14:43 Respiratory Rate 19 08/10/24 14:43 Blood Pressure 153/72 H 08/10/24 14:43 Pulse Oximetry 99 08/10/24 14:43 Oxygen Delivery Room Air 08/10/24 14:43 Reviewed MDM - Extremity Injury (Lower) MDM Narrative Medical decision making narrative: x-ray negative for fracture. Lucency noted concern for infection per radiologist. Patient has bruising and swelling from a gait getting her foot, no erythema or warmth concerning for infection. Recommend close follow-up with primary care physician. Please be advised this is a medical document. It is intended for [id number] communication. It is written in medical language and may contain unfamiliar abbreviations or verbiage. Medical documents are intended to carry relevant information, facts as evident, and the clinical opinion of the practitioner at the time of the encounter. This report may have been done utilizing a voice recognition system. Attempts have been made to correct errors. However, there may be uncorrected grammatical, spelling, and recognition errors present. The file time of this note does not necessarily represent the time of service. Imaging Data My impression: Agree with radiologist Radiologist's impression: XR foot LT min 3V Ordering provider: Rachelle Radford NP History: . pain and swelling 4th and 5th metatarsals . Comparison: None. FINDINGS: BONES: No acute fracture or dislocation. Osteopenia of the bones. JOINT SPACES: Narrowing of the proximal and distal interphalangeal joints. No tarsal coalition. SOFT TISSUES: Soft tissue swelling over the distal fifth metatarsal bone with lucency which may indicate infection. IMPRESSION: No acute osseous abnormality left foot. Polyarticular osteoarthritic changes. Discharge Plan Discharge Clinical Impression: Contusion of foot, left Qualifiers: Encounter type: initial encounter Qualified Code(s): S90.32XA - Contusion of left foot, initial encounter Patient Disposition: Home Condition: Stable Instructions: Foot Contusion (ED) Additional Instructions: the x-ray of your left foot was negative for fracture. Take Tylenol every 6-8 hours as needed for pain. Apply ice as needed for pain. Elevate when at rest. See your doctor if pain is not improving. Patient Language: Urdu Prescriptions: No Action multivitamin [One-A-Day Essential] Tablet 1 tablet PO DAILY levothyroxine 100 mcg tablet 100 mcg PO DAILY (DME) Left prosthetic bra See Rx Instructions .Route .MEDSUPPLY Qty: 3 1RF Rx Instructions: As directed propranolol 20 mg tablet 20 mg PO Q12H Qty: 180 1RF ergocalciferol (vitamin D2) 1,250 mcg (50,000 unit) capsule 1,250 mcg PO WEEKLY Qty: 12 1RF Follow-up/Referrals: Lefty Mcdaniel MD [Primary Care Provider] - Time of Disposition: 15:30
== END 2024-08-10 15:35 | disposition home or self-care (01) ==
PROVIDERS: Emergency Provider Nurse Practitioner Family; PCP Family Medicine
DX: S90.32XA Contusion of left foot, initial encounter (principal); W22.8XXA Striking against or struck by other objects, initial encounter; K74.60 Unspecified cirrhosis of liver; I10 Essential (primary) hypertension; K21.9 Gastro-esophageal reflux disease without esophagitis; E78.2 Mixed hyperlipidemia; E89.0 Postprocedural hypothyroidism; R73.03 Prediabetes; Z85.3 Personal history of malignant neoplasm of breast; Z85.850 Personal history of malignant neoplasm of thyroid; Z90.12 Acquired absence of left breast and nipple
CPT/HCPCS: 73630; 99213; G0463

== ENCOUNTER 2024-09-17 09:25 | Outpatient (CLI) | payer MEDICARE, MEDICAID, SELFPAY ==
[2024-09-17 09:53] LABS: Hematocrit 42.9 % (37.0-47.0); Hemoglobin 13.6 g/dL (12.0-15.0); Mean Corpuscular HGB Conc 31.7 g/dl (32-36); Mean Corpuscular Hemoglobin 30.4 pg (26-34); Mean Platelet Volume 9.8 fl (7.4-10.4); Platelet Count Result 114 k/mm3 (150-375); Red Blood Count 4.47 M/mm3 (4.2-5.4); Red Cell Distribution Width 14.3 % (11.5-14.5); White Blood Count 3.6 K/mm3 (4.5-10.0)
[2024-09-17 10:12] LABS: INR 1.1; Prothrombin Time 14.8 Seconds (11.1-14.7)
[2024-09-17 10:34] LABS: Alanine Aminotransferase 21 U/L (6-35); Albumin Level 3.5 g/dL (3.5-5.1); Alkaline Phosphatase 108 U/L (38-126); Anion Gap 7 mmol/L (4-12); Aspartate Amino Transferase 38 U/L (14-36); Bilirubin,Total 0.8 mg/dL (0.2-1.3); Blood Urea Nitrogen 9 mg/dL (7-17); Calcium 9.2 mg/dL (8.4-10.2); Carbon Dioxide 26 mmol/L (22-30); Chloride 107 mmol/L (98-107); Estimated Glomerular Filt Rate > 60; Glucose 160 mg/dL (65-110); Potassium 3.8 mmol/L (3.4-5.0); Sodium 140 mmol/L (137-145)
[2024-09-19 11:08] LABS: Alpha Fetoprotein TumorMarker. 5.8 ng/mL
== END 2024-09-17 09:26 | disposition home or self-care (01) ==
PROVIDERS: PCP Family Medicine; Visit Provider Nurse Practitioner Family
DX: K74.60 Unspecified cirrhosis of liver (principal); R79.89 Other specified abnormal findings of blood chemistry
CPT/HCPCS: 36415; 80053; 82105; 85027; 85055; 85610

== ENCOUNTER 2024-10-01 08:25 | Outpatient (CLI) | payer MEDICARE, MEDICAID, SELFPAY ==
--- NOTE | ~2024-10-01 | US_ITS ---
Limited ABDOMINAL ULTRASOUND (Doppler ultrasound interrogation techniques used as needed for this exa m.) Ordering provider: MITCH Reese History: . Y . Comparison: None. FINDINGS: PANCREAS: Normal echotexture and size. PORTAL VEIN: Hepatopedal flow demonstrated. LIVER: Nodular surface is noted suggestive of cirrhosis. Heterogenous echotexture.. No focal hepatic lesions or perihepatic fluid collections are identified. BILIARY DUCTS: No intra or extrahepatic biliary dilation. Common bile duct measures 5.4 mm in diamete r which is normal for patient's age. GALLBLADDER: Cholelithiasis. The wall thickness is 4.7 mm. Negative sonographic Best's sign. FREE FLUID: None visualized within the upper abdomen. IMPRESSION: Cholelithiasis. Liver cirrhosis. Thickened wall of the gallbladder. Clinical correlation for cholecys titis advised. Otherwise, , normal limited abdominal ultrasound. Reviewed, dictated and finalized at location A. IMPRESSION: Cholelithiasis. Liver cirrhosis. Thickened wall of the gallbladder. Clinical co rrelation for cholecystitis advised. Otherwise, , normal limited abdominal ultr asound.
== END 2024-10-01 08:26 | disposition home or self-care (01) ==
PROVIDERS: PCP Family Medicine; Visit Provider Nurse Practitioner Family
DX: K74.60 Unspecified cirrhosis of liver (principal); K80.20 Calculus of gallbladder without cholecystitis without obstruction; K82.8 Other specified diseases of gallbladder
CPT/HCPCS: 76705

== ENCOUNTER 2025-01-26 07:11 | Outpatient (CLI) | payer MEDICARE, MEDICAID, SELFPAY ==
[2025-01-26 08:33] LABS: Free T4 Free Thyroxine 1.87 ng/dL (0.78-2.19)
[2025-01-26 08:44] LABS: Thyroid Stimulating Hormone 18.400 uIU/mL (0.465-4.680)
[2025-01-29 10:59] LABS: Alanine Aminotransferase 19 U/L (6-35); Albumin Level 3.2 g/dL (3.5-5.1); Alkaline Phosphatase 116 U/L (38-126); Anion Gap 6 mmol/L (4-12); Aspartate Amino Transferase 34 U/L (14-36); Bilirubin,Total 0.5 mg/dL (0.2-1.3); Blood Urea Nitrogen 9 mg/dL (7-17); Calcium 8.5 mg/dL (8.4-10.2); Carbon Dioxide 24 mmol/L (22-30); Chloride 106 mmol/L (98-107); Estimated Glomerular Filt Rate > 60; Glucose 144 mg/dL (65-110); Potassium 4.2 mmol/L (3.4-5.0); Sodium 136 mmol/L (137-145); Total Protein 6.5 g/dL (6.3-8.2)
== END 2025-01-26 07:12 | disposition home or self-care (01) ==
LOC: ANHLAB 07:18
PROVIDERS: PCP Family Medicine
DX: C73 Malignant neoplasm of thyroid gland (principal)
CPT/HCPCS: 36415; 80053; 84439; 84443

== ENCOUNTER 2025-02-01 09:27 | Outpatient (CLI) | payer MEDICARE, MEDICAID, SELFPAY ==
--- OUTSIDE RECORDS SUMMARY | 2025-02-01 09:52 | XMS_ITS | Encounter Summary ---
Author Organization [facility] Address [address] [place] [address] Phone Care Team Providers Care Medical Care Evaluation Specialist Name Role Phone Teresa Gutierrez MD, Navi Luevano Primary Care Provider Patricia Mcdaniel MD Primary Care Provider Lenora Denney HARD METALS ENGRAVER HAND Unavailable [phone] Encounter Details Date Type Department Care Team (Late st Contact Info) Description 09/28/2018 Telephone [facility] Medicine Oncology [address] [phone] Katrina Llamas B.A. Social History Tobacco Use Types Packs/Day Years Used Date Smoking Tobacco: Never Smokeless Tobacco: Never Comments Unknown Sex and Gender Information Value Date Recorded Sex Assigned at Not on file Legal Sex Female 7:50 PM HHA Gender Identity Not on file Sexual Orientation Straight 10/06/2019 4: 43 PM CDT documented as of this encounter Plan of Treatment Not on file documented as of this encounter Visit Diagnoses Not on filedocumented in this encounter Care Teams Medical Care Evaluation Specialist Relationship Specialty Start Date End Date Navi Moore Jr., MD [address] [place] [address] PCP - General 07/05/16 09/10/20 Patricia Mcdaniel MD [address] [place] [address] PCP - General Family Practice 09/11/20 Lenora Denney NP [address] [address] Nurse Practitioner Medical Oncology 03/15/22 documented as of this encounter
--- OUTSIDE RECORDS SUMMARY | 2025-02-01 09:52 | XMS_ITS | Clinical Summary ---
Author Organization [facility] Address [address] [place] [address] Care Team Providers Care Economic Development Director Name Role Phone Unknown, Provider Primary Care Provider Unavaila ble Source Comments [facility] [employer],non-owned Affiliates and Associated Physician Practices is amultiple site organization consisting of ambulatory clinics and hospital sitesin [place], [place], [place] and [place]. This disclosure is being madepursuant to the Care Everywhere program and may not contain all information available regarding this patient. Last updated 18.[facility] [employer] Allergies No known active allergies Immunizations Immunization Administration Dates Next Due INFLUENZA VACCINE, HIGH-DOSE , QUADR. (FLUZONE HIGH-DOSE QUADRIVALENT; 65Y+), 0.7 ML (HD-IIV4) 01/24/2019 Social History Tobacco Use Types Packs/Day Years Used Date Smoking Tobacco: Never Assessed Comments Unknown Sex and Gender Information Value Date Recorded Sex Assigned at Not on file Legal Sex Female 10:02 AM CDT Gender Identity Not on file Sexual Orientation [...] yrs (1 - 1-dose 75+ series) 08/17/2015 DEPRESSION SCREENING 04/18/2024 COVID-19 VACCINE (3 - 2024- season) 2024 07/02/2020, 06/04/2020 INFLUENZA VACCINE (#1) 2024 9, 01/31/2018, 01/30/2018, Additional history exists HIB VACCINE Aged Out No longer eligi [...] on patient's age to complete this topic Insurance [employer] - [place] Care Teams Economic Development Director Relationship Specialty Start Date End Date Unknown, Provider PCP - General 01/24/19
--- OUTSIDE RECORDS SUMMARY | 2025-02-01 09:52 | XMS_ITS ---
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 Will check thyroid function test and adjust levothyroxine dose accordingly. TSH goal normal range Assessment & Plan (05/25/2023 2:27 PM SOFTWARE CONFIGURATION ENGINEER): Continue current levothyroxine dose. Will check thyroid function test and adjust levothyroxine dose accordingly. TSH goal normal range Assessment & Plan (05/31/2022 9:11 PM SOFTWARE CONFIGURATION ENGINEER): Continue current levothyroxine dose. Will check thyroid function test and adjust levothyroxine dose accordingly. 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 Assessment & Plan (10/22/2024 11:44 AM CDT): Biochemical incomplete response with no major correlate on neck US or PET Tumor markers are elevated but stable since diagnosis for years Plan to obtain tumor markers today Neck US last year stable, may recheck one this year if tumor markers trending up May consider bone scan and liver MRI as indicated on follow up based on tumor markers and patient preference and values Assessment & Plan (05/25/2023 2:26 PM SOFTWARE CONFIGURATION ENGINEER): Biochemical incomplete response with no major correlate on neck US or PET Tumor markers are elevated but stable since diagnosis for years Plan to obtain tumor markers with neck US this year May consider bone scan and liver MRI as indicated on follow up Assessment & Plan (05/31/2022 9:23 PM SOFTWARE CONFIGURATION ENGINEER): Biochemical incomplete response with no recent [...]
--- OUTSIDE RECORDS SUMMARY | 2025-02-01 09:52 | XMS_ITS | Clinical Summary ---
Author Organization [facility] Address [address] [place] [address] Care Team Providers Care Leather Whitener Name Role Phone Patricia Mcdaniel MD Primary Care Provider Lenora Denney PRESS TENDER INCENDIARY GRENADE Unavailable [phone] Allergies Active Allergy Reactions Criticality Noted Date Comments Iodinated Contrast Media Rash Medium 03/29/2013 Medications vitamins A,C,E-zinc-tatiana er 7,160-113-100 rlig-ws-inox tablet,delayed release (DR/EC)Indicati ons:eye heAlth Take 1 [...] before breakfast 90 tablet 2 4 Active carvediloL (COREG) 6.25 mg tablet TAKE 1 TABLET BY MOUTH EVERY 12 HOURS WITH FOOD 5 Active ergocalciferol (VITAMIN D) 50,000 unit capsule Take 1 capsule (50,000 Units total) by mouth once a week 5 Active propranoloL (INDERAL) 20 mg tablet Take 1 tablet (20 mg total) by mouth every 12 (twelve) hours 5 Active Active Problems Problem Noted Date Diagnosed Date 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 Will check thyroid function test and adjust levothyroxine dose accordingly. TSH goal normal range Assessment & Plan (05/25/2023 2:27 PM LINER INSERTER): Continue current levothyroxine dose. Will check thyroid function test and adjust levothyroxine dose accordingly. TSH goal normal range Assessment & Plan (05/31/2022 9:11 PM LINER INSERTER): Continue current levothyroxine dose. Will check thyroid [...] values Assessment & Plan (05/25/2023 2:26 PM LINER INSERTER): Biochemical incomplete response with no major correlate on neck US or PET Tumor markers are elevated but stable since diagnosis for years Plan to obtain tumor markers with neck US this year May consider bone scan and liver MRI as indicated on follow up Assessment & Plan (05/31/2022 9:23 PM LINER INSERTER): Biochemical incomplete response with no recent images [...] 0 05/09/2020 Incomplete uterovaginal prolapse 10/22/2019 05/09/2020 Encounters Date Type Department Care Team Description 12/24/2024 12:30 PM CDT - 12/24/2024 11:59 PM CDT Hospital Encounter [facility] Breast Imaging [address] [place] [phone] Screening mammogram, encounter for Discharge Disposition: Discharge to home or self care from Last 3 Months Immunizations Immunization Administration Dates Next Due Influenza, [...] on file Legal Sex Female 7:50 PM LINER INSERTER Gender Identity Not on file Sexual Orientation [...] Sign Reading Time Taken Comments Blood Pressure 146/70 10/22/2024 10:31 AM CDT Pulse 75 10/22/2024 10:31 AM CDT Temperature 36.7 C (98.1 F) 10/22/2024 10:31 AM CDT Respiratory Rate 17 03/26/2024 2:19 AM LINER INSERTER Oxygen Saturation 95% 03/26/2024 2:19 AM LINER INSERTER Inhaled Oxygen Concentration - - Weight 62.9 kg (138 lb 9.6 oz) 10/22/2024 10:31 AM CDT Height 165.1 cm (5' 5) 10/22/2024 10:31 AM CDT Body Mass Index 23.06 10/22/2024 10:31 AM CDT Plan of Treatment Health Maintenance Due Date Last Done Comments Depression Screening 1940 DTaP/Tdap/Td Vaccine (1 - Tdap) 08[birth year]17/1951 Hepatitis B Screening 1958 Zoster Vaccine (1 of 2) 1990 Well Visit 65+ 2005 Osteoporosis Screening-Bone Density Scan 02/02/2016 02/01/2014 Pneumococcal vaccine 65+ (2 of 2 - PCV20 or PCV21) 01/17/2018 01/17/2017 Fall Risk Assessment 12/12/2020 12/13/2019 Covid-19 Vaccine (3 - 2024-2 6 season) 2024 07/02/2020, 06/04/2020 Influenza Vaccine (#1) 2024 0, 01/24/2019, 01/24/2019, Additional history exists Procedures Procedure Name Priority Date/Time Associated Diagnosis Comments SCREENING MAMMOGRAM RIGHT W DAVID UNILATERAL ONLY Schedule Routine, Read Routine (OP Routine) 12/24/2024 1:07 PM CDT Screening mammogram, encounter for BONE DENSITY, TRANSMISSION Routine 02/01/2014 10:38 AM CDT from Last 3 Months or Most Recently Relevant to Health Maintenance Results * Screening Mammogram Right W David Unilateral Only (12/24/2024 1:07 PM CDT) Anatomical Region Laterality Modality Breast Right Mammography Impressions 12/24/2024 1:13 PM CDT BI-RADS ATLAS category (right): 1 - Negative There is no mammographic evidence of malignancy. A 1 year screening mammogram is recommended. The patient has been or will be contacted. We recommend annual screening mammography for women at average risk of breast cancer beginning at age 40, based on guidelines of the [employer] (ACR Practice Parameter for the Performance of Screening and Diagnostic Mammography) and [employer]. For women with and elevated risk of breast cancer, please refer to the ACR Practice Parameter for specific screening recommendations. The patient will be entered into a reminder system with a target due date of 1 year for her next screening exam. Narrative 12/24/2024 1:13 PM CDT Screening Mammogram Right W David Unilateral Only: 12/24/24 The study was acquired using full field digital technology and interpreted from soft copy. 2D digital mammographic views, as well as 3D digital tomosynthesis were performed in the CC and MLO projections. CLINICAL: Screening mammogram, encounter for. Medical history includes breast cancer. No known family history of breast cancer. COMPARISONS: 12/05/2023 Screening Mammogram Right W David Unilateral Only 10/22/2022 Screening Mammogram Right W David Unilateral Only 10/21/2021 Screening Mammogram Right W David 10/14/2020 Screening Mammogram Right W David Unilateral Only 11/06/2019 Diagnostic Mammogram Right W David 10/11/2019 Screening Mammogram Right W David Unilateral Only 07/14/2018 Screening Mammogram Right W David Unilateral Only 06/14/2017 MAMMOGRAPHY, TOMOGRAPHY, UNILATERAL 05/18/2016 Diagnostic Mammogram Right W David 04/15/2015 DIGITAL MAMMOGRAPHY, UNILATERAL 04/15/2015 Diagnostic Mammogram Right W David 04/15/2015 Screening Mammogram W David 04/09/2014 Screening Mammogram W David 03/27/2013 DIAGNOSTIC MAMMOGRAM 2D LEFT 03/27/2013 US Guided Localization Breast 03/20/2013 US Breast Limited 03/20/2013 Screening Mammogram W David 03/20/2013 DIAGNOSTIC MAMMOGRAM 2D BILATERAL BREAST TISSUE: The breasts are heterogeneously dense, which may obscure small masses. FINDINGS: The patient is status post left mastectomy. No suspicious masses, suspicious calcifications, or other suspicious findings are seen within the right breast. There has been no suspicious interval change. us Self Screening Mammogram IMG MAMMO PROCEDURES Fi nal Result * BONE DENSITY, TRANSMISSION (02/01/2014 10:38 AM CDT) Anatomical Region Laterality Modality N/A Radiographic Vida ging 02/01/2014 10:3 8 AM CDT Narrative 02/07/2014 3:22 PM CDT MAXINE GUILLEN M.D. RADHA CAMPO M.D. FINAL REPORT ACC# Date Time Exam [id number] Feb 01, 2014 10:38:00 [id number] BONE DEXA Axial EXAMINATION: BONE DENSITOMETRY OF [...] -2.0 is below the expected range for age. A Z-score below the expected range for age in a patient with recent fractures and/or chronic corticosteroid treatment is consistent with a diagnosis of osteoporosis. b) In post menopausal women and males over 50, comparison of the measured bone mineral density with the average value in young normal subjects (the T-score) has been found to be useful in [...] Feb 07 2014 3:22P Procedure Note Provider, Historical, MD - 08/14/2016 MAXINE GUILLEN M.D. RADHA CAMPO M.D. FINAL REPORT ACC# Date Time Exam [id number] Feb 01, 2014 10:38:00 [id number] BONE DEXA Axial EXAMINATION: BONE DENSITOMETRY OF [...] -2.0 is below the expected range for age. A Z-score below the expected range for age in a patient with recent fractures and/or chronic corticosteroid treatment is consistent with a diagnosis of osteoporosis. b) In post menopausal women and males over 50, comparison of the measured bone mineral density with the average value in young normal subjects (the T-score) has been found to be useful in [...] Most Recently Relevant to Health Maintenance Insurance [employer] MEDICARE PPO MEDICARE [employer] MEDICARE PPO Advance Directives For more information, please contact: [phone] Documents on File Type Date Recorded Patient Dry Wall Applicator Expl anation ADVANCE DIRECTIVE 12/12/2019 1:21 PM Power of Rough Planer Tender-Financial/Medical * Full Code (Latest Code Status on File) Date Activated Date Inactivated Comments 12/12/2019 9:14 PM 12/13/2019 4:43 PM Care Teams Leather Whitener Relationship Specialty Start Date End Date Patricia Mcdaniel MD PCP - General Family Practice 09/11/20 Lenora Denney NP [address] [place] [id number] Nurse Practitioner Medical Oncology 03/15/22
[2025-02-01 14:58] LABS: Hemoglobin A1C 5.7 % (<5.7)
== END 2025-02-01 09:28 | disposition home or self-care (01) ==
PROVIDERS: PCP Family Medicine; Visit Provider Family Medicine
DX: R73.03 Prediabetes (principal); I10 Essential (primary) hypertension; E55.9 Vitamin D deficiency, unspecified
CPT/HCPCS: 36415; 82306; 83036

== ENCOUNTER 2025-03-29 11:44 | Outpatient (CLI) | payer MEDICARE, MEDICAID, SELFPAY ==
[2025-03-29 18:11] LABS: Hematocrit 41.6 % (37.0-47.0); Hemoglobin 13.4 g/dL (12.0-15.0); Mean Corpuscular HGB Conc 32.2 g/dl (32-36); Mean Corpuscular Hemoglobin 31.7 pg (26-34); Mean Corpuscular Volume 98.3 fl (80-100); Platelet Count Result 109 k/mm3 (150-375); Red Blood Count 4.23 M/mm3 (4.2-5.4); White Blood Count 4.6 K/mm3 (4.5-10.0)
[2025-03-29 18:31] LABS: INR 1.1; Prothrombin Time 14.2 Seconds (11.1-14.7)
[2025-03-29 18:48] LABS: Alanine Aminotransferase 24 U/L (6-35); Albumin Level 3.4 g/dL (3.5-5.1); Alkaline Phosphatase 156 U/L (38-126); Anion Gap 2 mmol/L (4-12); Aspartate Amino Transferase 44 U/L (14-36); Bilirubin,Total 0.5 mg/dL (0.2-1.3); Blood Urea Nitrogen 14 mg/dL (7-17); Calcium 8.8 mg/dL (8.4-10.2); Carbon Dioxide 27 mmol/L (22-30); Chloride 107 mmol/L (98-107); Estimated Glomerular Filt Rate > 60; Glucose 83 mg/dL (65-110); Potassium 4.1 mmol/L (3.4-5.0); Sodium 136 mmol/L (137-145); Total Protein 7.0 g/dL (6.3-8.2)
== END 2025-03-29 11:45 | disposition home or self-care (01) ==
PROVIDERS: PCP Family Medicine; Visit Provider Internal Medicine Gastroenterology
DX: K74.60 Unspecified cirrhosis of liver (principal)
CPT/HCPCS: 36415; 80053; 82105; 85027; 85610